=== PATIENT | female | born 1935 | race Caucasian/White ===

== ENCOUNTER 2016-04-07 18:53 | Inpatient (IN) | payer MEDICARE, BC ==
[~2016-04-07] VITALS: Ht 172.2 cm; Wt 94.5 kg
[2016-04-07] MEDS ORDERED: BISACODYL 10 MG SUPP PR PRN (20:00)
[2016-04-07] MEDS ORDERED: DEXTROSE 50% 50 ML SYRINGE IV PRN ×2 (20:00)
[2016-04-07] MEDS ORDERED: IPRATROPIUM (NEB) 0.5 MG/2.5 ML AMP INH PRN (20:00)
[2016-04-07] MEDS ORDERED: GLUCOSE GEL 15 GRAM TUBE PO PRN ×2 (20:00)
[2016-04-07] MEDS ORDERED: ALBUTEROL 0.5% (NEB) 2.5 MG/0.5 ML AMP INH PRN (20:00)
[2016-04-07] MEDS ORDERED: ACETAMINOPHEN 650 MG SUPP PR PRN (20:00)
[2016-04-07] MEDS ORDERED: morphine 2 MG INJ IV PRN (20:00)
[2016-04-07] MEDS ORDERED: GLUCAGON 1 MG INJ IM PRN (20:00)
[2016-04-07] MEDS ORDERED: GLUCOSE GEL 15 GRAM TUBE BUCCAL PRN (20:00)
[2016-04-07] MEDS ORDERED: hydrOXYzine HCL 25 MG TAB PO PRN (20:00)
[2016-04-07] MEDS ORDERED: ONDANSETRON 4 MG INJ IV PRN (20:00)
[2016-04-07] MEDS ORDERED: ZOLPIDEM 5 MG TAB PO PRN (20:00)
[2016-04-07] MEDS ORDERED: ACETAMINOPHEN 325 MG TAB PO PRN (20:00)
[2016-04-07] MEDS ORDERED: LOPERAMIDE 2 MG CAP PO PRN (20:00)
[2016-04-07] MEDS ORDERED: NITROGLYCERIN (SL) 0.4 MG TAB SL PRN (20:00)
[2016-04-07] MEDS: ALBUTEROL 0.5% (NEB) 2.5 MG/0.5 ML AMP INH SCH (20:33)
[2016-04-07] MEDS: IPRATROPIUM (NEB) 0.5 MG/2.5 ML AMP INH SCH (20:33)
[2016-04-07] MEDS: [UNRECOGNIZED DRUG - OTHER] SC SCH (21:00)
[2016-04-07] MEDS: TRIAMCINOLONE ACET 0.1% 15 GM CR TOP SCH (21:00)
[2016-04-07] MEDS: SALMETEROL/FLUTICASONE 250/50 INHA INH SCH (21:16)
[2016-04-07] MEDS: ATORVASTATIN 10 MG TAB PO SCH (21:16)
[2016-04-07] MEDS: traMADol 50 MG TAB PO PRN (21:22)
[2016-04-07] MEDS: INSULIN GLARGINE [LANtus] 3 ML PEN SC SCH (21:30)
[2016-04-07 22:54] LABS: ADD UMIC YES; URINE BILIRUBIN (Dip) NEGATIVE (NEGATIVE); URINE BLOOD (Dip) 2+ (NEGATIVE); URINE COLOR LT. YELLOW (YELLOW); URINE GLUCOSE (Dip) NEGATIVE (NEGATIVE); URINE KETONES (Dip) NEGATIVE (NEGATIVE); URINE LEUKOCYTE ESTERASE (Dip) 2+ (NEGATIVE); URINE NITRITE (Dip) NEGATIVE (NEGATIVE); URINE TOTAL PROTEIN (Dip) 2+ (NEGATIVE); URINE UROBILINOGEN (Dip) 0.2 E.U./dL (0.1-1.0)
[2016-04-07 23:33] LABS: SQUAMOUS EPITHELIAL CELL,UR MANY; URINE RBCS 25-50 /HPF (0)
[2016-04-07 23:34] LABS: BACTERIA,URINE MANY
[2016-04-08] MEDS: ALBUTEROL 0.5% (NEB) 2.5 MG/0.5 ML AMP INH SCH ×7 (01:00→20:16)
[2016-04-08] MEDS ORDERED: LACTULOSE 30ML CUP PO PRN (03:00)
[2016-04-08] MEDS ORDERED: ACETAMINOPHEN 325 MG TAB PO PRN (03:00)
[2016-04-08] MEDS ORDERED: MAGNESIUM HYDROXIDE 30ML CUP PO PRN (03:00)
[2016-04-08] MEDS ORDERED: BISACODYL 10 MG SUPP PR PRN (03:00)
[2016-04-08 07:27] LABS: ALBUMIN 3.2 g/dl (3.3-4.9)
[2016-04-08 07:30] VITALS: BP 135/60; RESP 18
[2016-04-08 07:30] LABS: BILIRUBIN,INDIRECT 0.1 mg/dl (0-1.1); BILIRUBIN,TOTAL 0.1 mg/dl (0.2-1.3); CREATININE 1.06 mg/dl (0.44-1.00); TOTAL PROTEIN 6.4 g/dl (6.1-8.1)
[2016-04-08 07:35] LABS: BASOPHILS % 0.5 % (0.0-2.0); EOSINOPHILS % 9.7 % (0.0-7.0); HEMATOCRIT 30.6 % (37.0-47.0); HEMOGLOBIN 9.8 g/dl (12.0-16.0); LYMPHOCYTES # 1.5 10^3/ul (0.8-2.9); LYMPHOCYTES % 15.5 % (15.0-51.0); MEAN CORPUSCULAR HEMOGLOBIN 23.6 pg (29.0-33.0); MEAN CORPUSCULAR HGB CONC 32.1 g/dl (32.0-37.0); MEAN CORPUSCULAR VOLUME 73.5 fl (82.0-101.0); MEAN PLATELET VOLUME 10.2 fl (7.4-10.4); MONOCYTE # 0.8 10^3/ul (0.3-0.9); MONOCYTES % 8.1 % (0.0-11.0); NEUTROPHIL # 6.6 10^3/ul (1.6-7.5); NEUTROPHILS % 66.2 % (39.0-77.0); PLATELET COUNT 264 10^3/UL (140-440); RED BLOOD COUNT 4.17 10^6/ul (4.20-5.40); RED CELL DISTRIBUTION WIDTH 20.9 % (11.5-14.5)
[2016-04-08 08:00] VITALS: BP 135/60; PULSE 84; RESP 18
[2016-04-08 08:02] LABS: CONDITION 1; LH ANALYZER COMMENTS 1
[2016-04-08] MEDS: INSULIN ASPART [NOVOLOG] 3 ML PEN SC SCH ×3 (08:05→17:52)
[2016-04-08] MEDS: [UNRECOGNIZED DRUG - OTHER] SC SCH ×4 (08:06→20:49)
[2016-04-08] MEDS: FERROUS SULFATE (EC) 325 MG TAB PO SCH (08:40)
[2016-04-08] MEDS: ESCITALOPRAM 10 MG TAB PO SCH (08:40)
[2016-04-08] MEDS: AMLODIPINE 5 MG TAB PO SCH (08:42)
[2016-04-08] MEDS: ATENOLOL 50 MG TAB PO SCH (08:43)
[2016-04-08] MEDS: SALMETEROL/FLUTICASONE 250/50 INHA INH SCH ×2 (08:44→20:42)
[2016-04-08] MEDS: IPRATROPIUM (NEB) 0.5 MG/2.5 ML AMP INH SCH ×4 (08:57→20:16)
[2016-04-08] MEDS: DOCUSATE SODIUM 100 MG CAP PO SCH ×2 (09:00→20:43)
[2016-04-08] MEDS: TRIAMCINOLONE ACET 0.1% 15 GM CR TOP SCH ×2 (09:00→20:49)
[2016-04-08] MEDS: FLUTICASONE 0.05% 16 GM NAS SPRAY NASAL SCH (09:00)
--- NOTE | 2016-04-08 17:28 | HP ---
Date/Time of Note Date/Time of Note DATE: 04/08/16 TIME: 17:27 Assessment/Plan VTE Prophylaxis VTE Prophylaxis Intervention: SCD's Lines/Catheters Urinary Cath still in place: No Assessment/Plan Assessment/Plan 1. Diabetes mellitus type 2. 2. Hypertension. 3. Diabetic neuropathy. 4. Acute on chronic kidney disease- Resolved 5. Anxiety. 6. Rehabilitation and Mobility 7. COPD Will cont all medical Rx and treatments from [facility] Pt is tolerating without any adverse affects BP well controlled SOB has significantly improved, cont respiratory care. Pt does not wish to have ADA diet, Prefers regular diet, will request Dietary consultation. Pt code status is confirmed with Nursing present, DNR. HPI/ROS Admit Date/Time Admit Date/Time Apr 07, 2016 at 18:53 Hx of Present Illness 80-year-old female with a history of multiple medical comorbidities, Hx of COPD , DM, HTN and CKD, who was initially admitted to [facility] with severe increased shortness of breath. The patient was noted to have respiratory failure secondary to COPD exacerbation. The patient was eventually transferred to [place]. The patient's pulmonary status continued to improve and patient was discharged from [place] and admitted to Rehab unit. ROS all other systems reviewed and are negative. PMH/Family/Social Past Medical History PAST MEDICAL HISTORY: 1. Chronic obstructive pulmonary disease on home O2. 2. Hypertension. 3. Type 2 diabetes mellitus. 4. Chronic kidney disease. 5. Anxiety. CURRENT MEDICATIONS: 1. Albuterol inhaler. 2. Norvasc 5 mg p.o. q.a.m. 3. Atenolol 50 mg p.o. daily. 4. Lipitor 10 mg p.o. daily. 5. Lexapro 10 mg p.o. daily. 6. Ferrous sulfate 325 p.o. q.a.m. 7. Atarax p.r.n. 8. Insulin sliding scale. 9. NovoLog 8 units subq before meals. 10. Lantus 25 units subq at bedtime. 11. Tramadol p.r.n. 12. Advair inhaler b.i.d. ALLERGIES: STEROIDS. Medical History: other (as per hPI) Past Surgical History Past Surgical Hx: other Family History Significant Family History: no pertinent family hx Social History Alcohol Use: none Smoking Status: Former smoker Drug Use: none Exam/Review of Systems Vital Signs Vitals Vital Signs Date Time Temp Pulse Resp B/P Pulse Ox O2 Delivery O2 Flow Rate FiO2 04/08/16 17:21 96 20 97 Nasal Cannula 3.0 04/08/16 08:00 98.2 135/60 Exam Constitutional: alert, oriented, No distress Psych: No anxiety Head: atraumatic, normocephalic Eyes: EOMI ENMT: mucosa pink and moist, nl lips & teeth Neck: No jvd Respiratory: crackles/rales, No diminished breath sounds, No labored breathing, No wheezing Cardiovascular: edema, regular rate and rhythm Gastrointestinal: non-tender, soft, No distended, No rebound or guarding Extremities: No edema Neurological: SHERIFF'S OFFICER II-XII intact, nl mental status, nl speech, No confused, No lethargic Skin: No diaphoresis, No rash or lesions Labs Result Diagram: 04/08/16 0600 04/08/16 0600 Medications Medications Current Medications Acetaminophen (Tylenol Tab) 650 mg Q6H PRN PO MILD PAIN 1-3 OR TEMP.>100.4F; Start 04/07/16 at 20:00 Acetaminophen (Tylenol Supp) 650 mg Q6H PRN RI MILD PAIN 1-3 OR TEMP.>100.4F; Start 04/07/16 at 20:00 Amlodipine Besylate (Norvasc) 5 mg QAM PO Last administered on 04/08/16 08:42 ; Admin Dose 5 MG; Start 04/08/16 at 09:00 Atenolol (Tenormin) 50 mg DAILY PO Last administered on 04/08/16 08:43; Admin Dose 50 MG; Start 04/08/16 at 09:00 Atorvastatin Calcium (Lipitor) 10 mg DAILY@21 PO Last administered on 21:16; Admin Dose 10 MG; Start 04/07/16 at 21:00 Bisacodyl (Dulcolax Supp) 10 mg DAILY PRN RI CONSTIPATION; Start 04/07/16 at 20 :00 Clonidine (Catapres) 0.1 mg Q6H PRN PO SBP ABOVE 160; DBP ABOVE 100; Start at 20:00 Diphenhydramine HCl (Benadryl) 25 mg Q6H PRN PO ITCHING; Start 04/07/16 at 20: 00 Escitalopram Oxalate (Lexapro) 10 mg DAILY PO Last administered on 04/08/16 08 :40; Admin Dose 10 MG; Start 04/08/16 at 09:00 Ferrous Sulfate (Ferrous Sulfate (Ec)) 325 mg QAM PO Last administered on 08:40; Admin Dose 325 MG; Start 04/08/16 at 09:00 Fluticasone Propionate (Flonase 0.05% Nasal) 2 spray DAILY NASAL ; Start at 09:00 Hydroxyzine HCl (Atarax) 25 mg Q6H PRN PO ITCHING; Start 04/07/16 at 20:00 Insulin Glargine (Lantus) 25 unit HS SC Last administered on 04/07/16 21:30; Admin Dose 25 UNIT; Start 04/07/16 at 21:00 Loperamide HCl (Imodium Cap) 2 mg Q4H PRN PO DIARRHEA; Start 04/07/16 at 20:00 Morphine Sulfate (morphine) 1 mg Q2H PRN IV PAIN SCALE 7-10; Start 04/07/16 at 20:00 Nitroglycerin (Nitroglycerin (Sl Tab) 0.4 Mg) 1 tab Q5M PRN SL CHEST PAIN; Start 04/07/16 at 20:00 Ondansetron HCl (Zofran Inj) 4 mg Q4H PRN IV NAUSEA AND/OR VOMITING; Start at 20:00 Salmeterol Xinafoate/ Fluticasone (Advair 250/50 Diskus) 1 inh BID INH Last administered on 04/08/16 08:44; Admin Dose 1 INH; Start 04/07/16 at 21:00 Tramadol HCl (Ultram) 50 mg Q6H PRN PO SEVERE PAIN Last administered on 21:22; Admin Dose 50 MG; Start 04/07/16 at 20:00 Triamcinolone Acetonide (Kenalog 0.1% Cr) 1 applic BID TOP ; Start 04/07/16 at 21:00 Zolpidem Tartrate (Ambien) 5 mg HS PRN PO INSOMNIA; Start 04/07/16 at 20:00 Miscellaneous Information 1 ea NOTE XX ; Start 04/07/16 at 20:00 Glucose (Glutose) 15 gm Q15M PRN PO DECREASED GLUCOSE; Start 04/07/16 at 20:00 Glucose (Glutose) 22.5 gm Q15M PRN PO DECREASED GLUCOSE; Start 04/07/16 at 20: 00 Dextrose (D50w Syringe) 25 ml Q15M PRN IV DECREASED GLUCOSE; Start 04/07/16 at 20:00 Dextrose (D50w Syringe) 50 ml Q15M PRN IV DECREASED GLUCOSE; Start 04/07/16 at 20:00 Glucagon (Glucagen) 1 mg Q15M PRN IM DECREASED GLUCOSE; Start 04/07/16 at 20:00 Glucose (Glutose) 15 gm Q15M PRN BUCCAL DECREASED GLUCOSE; Start 04/07/16 at 20 :00 Influenza Virus Vaccine (Fluzone) 0.5 ml ONCE ONCE IM* ; Start 04/09/16 at 09:00 ; Stop 04/09/16 at 09:01 Docusate Sodium (Colace) 100 mg BID PO ; Start 04/08/16 at 09:00 Senna (Senokot) 1 tab HS PO ; Start 04/08/16 at 21:00 Acetaminophen (Tylenol Tab) 650 mg Q4H PRN PO PAIN; Start 04/08/16 at 03:00 Magnesium Hydroxide (Milk Of Mag) 30 ml BID PRN PO CONSTIPATION; Start at 03:00 Lactulose (Enulose) 20 gm DAILY PRN PO CONSTIPATION; Start 04/08/16 at 03:00 Bisacodyl (Dulcolax Supp) 10 mg DAILY PRN RI CONSTIPATION; Start 04/08/16 at 03 :00 BRANDYN LACKEY MD Apr 08, 2016 17:28
--- NOTE | 2016-04-08 17:52 | CONS ---
DATE OF ADMISSION: 04/07/2016 DATE OF CONSULTATION: 04/08/2016 REHABILITATION IMPAIRMENT CATEGORY: Pulmonary debility secondary to chronic obstructive pulmonary d isease exacerbation. ACTIVE COMORBIDITIES: 1. Diabetes mellitus type 2. 2. Hypertension. 3. Diabetic neuropathy. 4. Acute on chronic kidney disease. 5. Anxiety. 6. Impairments in self-care and mobility. HISTORY OF PRESENT ILLNESS: The patient is a 80-year-old female with a history of multiple medical comorbidities who was initially admitted to [facility] with severe increased shortness of breath. The patient was noted to have respiratory failure secondary to COPD exacerbation. The trinity ent was eventually transferred to [place]. The patient's pulmonary status continued to improve and t he patient is now able to tolerate comprehensive interdisciplinary rehab care. FUNCTIONAL HISTORY: Prior to recent events, she was independent in self-care tasks and mobility. C urrently, she requires moderate assist for self-care and mobility tasks. SOCIAL HISTORY: The patient reportedly lives at home and hopes to return there upon discharge. PAST MEDICAL HISTORY: 1. Chronic obstructive pulmonary disease on home O2. 2. Hypertension. 3. Type 2 diabetes mellitus. 4. Chronic kidney disease. 5. Anxiety. CURRENT MEDICATIONS: 1. Albuterol inhaler. 2. Norvasc 5 mg p.o. q.a.m. 3. Atenolol 50 mg p.o. daily. 4. Lipitor 10 mg p.o. daily. 5. Lexapro 10 mg p.o. daily. 6. Ferrous sulfate 325 p.o. q.a.m. 7. Atarax p.r.n. 8. Insulin sliding scale. 9. NovoLog 8 units subq before meals. 10. Lantus 25 units subq at bedtime. 11. Tramadol p.r.n. 12. Advair inhaler b.i.d. ALLERGIES: STEROIDS. PHYSICAL EXAMINATION: VITAL SIGNS: The patient is currently afebrile with stable vital signs. HEENT: The extraocular motions appear intact. Oropharynx clear. NECK: Supple. LUNGS: Clear anteriorly. CARDIAC: S1, S2. ABDOMEN: Soft, nontender, positive bowel sounds. NEUROLOGIC: She is awake and alert and oriented x3. She can follow simple 1-step commands. She de monstrates antigravity strength in bilateral upper extremity and lower extremity. She does have imp aired dynamic balance. PLAN: The patient has been admitted for comprehensive interdisciplinary acute rehab and is anticipa sanchez to tolerate 3 hours of daily therapy in divided doses for at least 5/7 days a week. The treatme nt plan will include: 1. Physical therapy to focus on bed mobility, transfers, and household ambulation with the goal of having the patient reach a standby assist level while maintaining O2 saturation. 2. Occupational therapy to focus on hygiene, grooming, dressing, bathing, and toileting activities with the goal of having the patient reach a standby assist level. 3. Rehabilitation nursing for carryover of therapeutic interventions, the goal of continent of mila l and bladder, and the goal of the patient education with regard to the aforementioned issues. REHABILITATION BARRIER: O2 requirement. INTERVENTION FOR BARRIER: Close monitoring of oxygen saturations. ESTIMATED LENGTH OF STAY: 14 days. DISPOSITION GOAL: Home. I acknowledge that I have performed a full physical examination on this patient within 24 hours of a dmission to the rehabilitation unit and believe the patient is a good candidate for comprehensive in terdisciplinary rehab care and is anticipated to make reasonable goals in a reasonable period of kateryna e as outlined above. Dictated By: SISSY HOOD/NTS Conf#: [id number] DID#: [id number]
[2016-04-08 20:06] VITALS: BP 124/59; RESP 17
[2016-04-08] MEDS: SENNA TAB PO SCH (20:43)
[2016-04-08] MEDS: ATORVASTATIN 10 MG TAB PO SCH (20:43)
[2016-04-08] MEDS: INSULIN GLARGINE [LANtus] 3 ML PEN SC SCH (20:46)
[2016-04-09 08:00] VITALS: BP 145/85; PULSE 85; RESP 18
[2016-04-09] MEDS: INSULIN ASPART [NOVOLOG] 3 ML PEN SC SCH ×3 (08:05→17:32)
[2016-04-09] MEDS: [UNRECOGNIZED DRUG - OTHER] SC SCH ×4 (08:07→20:55)
[2016-04-09] MEDS: traMADol 50 MG TAB PO PRN ×2 (08:47→20:41)
[2016-04-09] MEDS: SALMETEROL/FLUTICASONE 250/50 INHA INH SCH ×2 (08:47→20:40)
[2016-04-09] MEDS: ESCITALOPRAM 10 MG TAB PO SCH (08:48)
[2016-04-09] MEDS: FERROUS SULFATE (EC) 325 MG TAB PO SCH (08:48)
[2016-04-09] MEDS: FLUTICASONE 0.05% 16 GM NAS SPRAY NASAL SCH (08:49)
[2016-04-09] MEDS: DOCUSATE SODIUM 100 MG CAP PO SCH ×2 (08:49→20:40)
[2016-04-09 08:53] VITALS: BP 145/85; RESP 18
[2016-04-09] MEDS: AMLODIPINE 5 MG TAB PO SCH (09:00)
[2016-04-09] MEDS: ATENOLOL 50 MG TAB PO SCH (09:00)
[2016-04-09] MEDS ORDERED: INFLUENZA VIRUS VACCINE 0.5 ML (DISPENSING) IM* ONE (09:00)
[2016-04-09] MEDS: TRIAMCINOLONE ACET 0.1% 15 GM CR TOP SCH ×2 (09:00→20:56)
[2016-04-09] MEDS: IPRATROPIUM (NEB) 0.5 MG/2.5 ML AMP INH SCH ×4 (09:47→21:40)
[2016-04-09] MEDS: ALBUTEROL 0.5% (NEB) 2.5 MG/0.5 ML AMP INH SCH ×4 (09:47→21:41)
--- NOTE | 2016-04-09 11:17 | CONS ---
Date/Time of Note Date/Time of Note DATE: 04/09/16 TIME: 11:16 Consult Date/Type/Reason Admit Date/Time Apr 07, 2016 at 18:53 Initial Consult Date Subjective Feeling much better than yesterday Objective pulm- cta mod assist amb 40 feet Vital Signs Date Time Temp Pulse Resp B/P Pulse Ox O2 Delivery O2 Flow Rate FiO2 04/09/16 09:48 85 20 Nasal Cannula 3.0 04/09/16 08:53 98.7 145/85 98 Intake and Output 04/08/16 04/08/16 04/09/16 15:00 23:00 07:00 Intake Total 240 ml Balance 240 ml Results/Medications Result Diagram: 04/08/16 0600 04/08/16 0600 Results 24 hrs Laboratory Tests Test 04/08/16 12:09 04/08/16 17:23 04/08/16 20:39 04/09/16 03:04 Bedside Glucose 218 92 165 147 Test 04/09/16 07:33 Bedside Glucose 200 Medications Current Medications Acetaminophen (Tylenol Tab) 650 mg Q6H PRN PO MILD PAIN 1-3 OR TEMP.>100.4F; Start 04/07/16 at 20:00 Acetaminophen (Tylenol Supp) 650 mg Q6H PRN MD MILD PAIN 1-3 OR TEMP.>100.4F; Start 04/07/16 at 20:00 Amlodipine Besylate (Norvasc) 5 mg QAM PO Last administered on 04/08/16 08:42 ; Admin Dose 5 MG; Start 04/08/16 at 09:00 Atenolol (Tenormin) 50 mg DAILY PO Last administered on 04/08/16 08:43; Admin Dose 50 MG; Start 04/08/16 at 09:00 Atorvastatin Calcium (Lipitor) 10 mg DAILY@21 PO Last administered on 20:43; Admin Dose 10 MG; Start 04/07/16 at 21:00 Bisacodyl (Dulcolax Supp) 10 mg DAILY PRN MD CONSTIPATION; Start 04/07/16 at 20 :00 Clonidine (Catapres) 0.1 mg Q6H PRN PO SBP ABOVE 160; DBP ABOVE 100; Start at 20:00 Diphenhydramine HCl (Benadryl) 25 mg Q6H PRN PO ITCHING; Start 04/07/16 at 20: 00 Escitalopram Oxalate (Lexapro) 10 mg DAILY PO Last administered on 04/09/16 08 :48; Admin Dose 10 MG; Start 04/08/16 at 09:00 Ferrous Sulfate (Ferrous Sulfate (Ec)) 325 mg QAM PO Last administered on 08:48; Admin Dose 325 MG; Start 04/08/16 at 09:00 Fluticasone Propionate (Flonase 0.05% Nasal) 2 spray DAILY NASAL ; Start at 09:00 Hydroxyzine HCl (Atarax) 25 mg Q6H PRN PO ITCHING; Start 04/07/16 at 20:00 Insulin Glargine (Lantus) 25 unit HS SC Last administered on 04/08/16 20:46; Admin Dose 25 UNIT; Start 04/07/16 at 21:00 Loperamide HCl (Imodium Cap) 2 mg Q4H PRN PO DIARRHEA; Start 04/07/16 at 20:00 Morphine Sulfate (morphine) 1 mg Q2H PRN IV PAIN SCALE 7-10; Start 04/07/16 at 20:00 Nitroglycerin (Nitroglycerin (Sl Tab) 0.4 Mg) 1 tab Q5M PRN SL CHEST PAIN; Start 04/07/16 at 20:00 Ondansetron HCl (Zofran Inj) 4 mg Q4H PRN IV NAUSEA AND/OR VOMITING; Start at 20:00 Salmeterol Xinafoate/ Fluticasone (Advair 250/50 Diskus) 1 inh BID INH Last administered on 04/09/16 08:47; Admin Dose 1 INH; Start 04/07/16 at 21:00 Tramadol HCl (Ultram) 50 mg Q6H PRN PO SEVERE PAIN Last administered on 08:47; Admin Dose 50 MG; Start 04/07/16 at 20:00 Triamcinolone Acetonide (Kenalog 0.1% Cr) 1 applic BID TOP Last administered on 04/08/16 20:49; Admin Dose 1 APPLIC; Start 04/07/16 at 21:00 Zolpidem Tartrate (Ambien) 5 mg HS PRN PO INSOMNIA; Start 1/15/17 at 20:00 Miscellaneous Information 1 ea NOTE XX ; Start 04/07/16 at 20:00 Glucose (Glutose) 15 gm Q15M PRN PO DECREASED GLUCOSE; Start 04/07/16 at 20:00 Glucose (Glutose) 22.5 gm Q15M PRN PO DECREASED GLUCOSE; Start 04/07/16 at 20: 00 Dextrose (D50w Syringe) 25 ml Q15M PRN IV DECREASED GLUCOSE; Start 04/07/16 at 20:00 Dextrose (D50w Syringe) 50 ml Q15M PRN IV DECREASED GLUCOSE; Start 04/07/16 at 20:00 Glucagon (Glucagen) 1 mg Q15M PRN IM DECREASED GLUCOSE; Start 04/07/16 at 20:00 Glucose (Glutose) 15 gm Q15M PRN BUCCAL DECREASED GLUCOSE; Start 04/07/16 at 20 :00 Docusate Sodium (Colace) 100 mg BID PO Last administered on 04/08/16 20:43; Admin Dose 100 MG; Start 04/08/16 at 09:00 Senna (Senokot) 1 tab HS PO Last administered on 04/08/16 20:43; Admin Dose 1 TAB; Start 04/08/16 at 21:00 Acetaminophen (Tylenol Tab) 650 mg Q4H PRN PO PAIN; Start 04/08/16 at 03:00 Magnesium Hydroxide (Milk Of Mag) 30 ml BID PRN PO CONSTIPATION; Start at 03:00 Lactulose (Enulose) 20 gm DAILY PRN PO CONSTIPATION; Start 04/08/16 at 03:00 Bisacodyl (Dulcolax Supp) 10 mg DAILY PRN MD CONSTIPATION; Start 04/08/16 at 03 :00 Assessment/Plan Additional Assessment/Plan Rehab- Pulmonary debility secondary to chronic obstructive pulmonary disease exacerbation. Tolerating rehab program Diabetes mellitus type 2- wants more liberalized diet Hypertension. Diabetic neuropathy. Acute on chronic kidney disease. Anxiety. SISSY CARBALLO MD Apr 09, 2016 11:17
--- NOTE | 2016-04-09 12:53 | PN ---
Date/Time of Note Date/Time of Note DATE: 04/09/16 TIME: 12:52 Assessment/Plan VTE Prophylaxis VTE Prophylaxis Intervention: SCD's Lines/Catheters Urinary Cath still in place: No Assessment/Plan Assessment/Plan 1. Diabetes mellitus type 2. 2. Hypertension. 3. Diabetic neuropathy. 4. Acute on chronic kidney disease- Resolved 5. Anxiety. 6. Rehabilitation and Mobility 7. COPD Will cont all medical Rx and treatments from [facility] Pt is tolerating without any adverse affects, BP well controlled SOB has significantly improved, cont respiratory care. Pt does not wish to have ADA diet, Prefers regular diet, will request Dietary consultation. Pt code status is confirmed with Nursing present, DNR. Subjective 24 Hr Interval Summary Free Text/Dictation No new complaints. Exam/Review of Systems Vital Signs Vitals Vital Signs Date Time Temp Pulse Resp B/P Pulse Ox O2 Delivery O2 Flow Rate FiO2 04/09/16 09:48 85 20 Nasal Cannula 3.0 04/09/16 08:53 98.7 145/85 98 Intake and Output 04/08/16 04/08/16 04/09/16 15:00 23:00 07:00 Intake Total 240 ml Balance 240 ml Exam Constitutional: alert, No distress ENMT: mucosa pink and moist Neck: No jvd Respiratory: normal air movement, No crackles/rales, No diminished breath sounds, No labored breathing Cardiovascular: regular rate and rhythm, No edema Gastrointestinal: soft Neurological: EVENTS MANAGER II-XII intact, nl mental status Skin: No diaphoresis Results Result Diagram: 04/08/16 0600 04/08/16 0600 Results 24 hrs Laboratory Tests Test 04/08/16 17:23 04/08/16 20:39 04/09/16 03:04 04/09/16 07:33 Bedside Glucose 92 165 147 200 Test 04/09/16 12:03 Bedside Glucose 241 H Medications Medications Current Medications Acetaminophen (Tylenol Tab) 650 mg Q6H PRN PO MILD PAIN 1-3 OR TEMP.>100.4F; Start 04/07/16 at 20:00 Acetaminophen (Tylenol Supp) 650 mg Q6H PRN NV MILD PAIN 1-3 OR TEMP.>100.4F; Start 04/07/16 at 20:00 Amlodipine Besylate (Norvasc) 5 mg QAM PO Last administered on 04/08/16t 08:42 ; Admin Dose 5 MG; Start 04/08/16 at 09:00 Atenolol (Tenormin) 50 mg DAILY PO Last administered on 04/08/16 08:43; Admin Dose 50 MG; Start 04/08/16 at 09:00 Atorvastatin Calcium (Lipitor) 10 mg DAILY@21 PO Last administered on 20:43; Admin Dose 10 MG; Start 04/07/16 at 21:00 Bisacodyl (Dulcolax Supp) 10 mg DAILY PRN [place] CONSTIPATION; Start 04/07/16 at 20 :00 Clonidine (Catapres) 0.1 mg Q6H PRN PO SBP ABOVE 160; DBP ABOVE 100; Start at 20:00 Diphenhydramine HCl (Benadryl) 25 mg Q6H PRN PO ITCHING; Start 04/07/16 at 20: 00 Escitalopram Oxalate (Lexapro) 10 mg DAILY PO Last administered on 04/09/16 08 :48; Admin Dose 10 MG; Start 04/08/16 at 09:00 Ferrous Sulfate (Ferrous Sulfate (Ec)) 325 mg QAM PO Last administered on 08:48; Admin Dose 325 MG; Start 04/08/16 at 09:00 Fluticasone Propionate (Flonase 0.05% Nasal) 2 spray DAILY NASAL ; Start at 09:00 Hydroxyzine HCl (Atarax) 25 mg Q6H PRN PO ITCHING; Start 04/07/16 at 20:00 Insulin Glargine (Lantus) 25 unit HS SC Last administered on 04/08/16 20:46; Admin Dose 25 UNIT; Start 04/07/16 at 21:00 Loperamide HCl (Imodium Cap) 2 mg Q4H PRN PO DIARRHEA; Start 04/07/16 at 20:00 Morphine Sulfate (morphine) 1 mg Q2H PRN IV PAIN SCALE 7-10; Start 04/07/16 at 20:00 Nitroglycerin (Nitroglycerin (Sl Tab) 0.4 Mg) 1 tab Q5M PRN SL CHEST PAIN; Start 04/07/16 at 20:00 Ondansetron HCl (Zofran Inj) 4 mg Q4H PRN IV NAUSEA AND/OR VOMITING; Start at 20:00 Salmeterol Xinafoate/ Fluticasone (Advair 250/50 Diskus) 1 inh BID INH Last administered on 04/09/16 08:47; Admin Dose 1 INH; Start 04/07/16 at 21:00 Tramadol HCl (Ultram) 50 mg Q6H PRN PO SEVERE PAIN Last administered on 08:47; Admin Dose 50 MG; Start 04/07/16 at 20:00 Triamcinolone Acetonide (Kenalog 0.1% Cr) 1 applic BID TOP Last administered on 04/08/16 20:49; Admin Dose 1 APPLIC; Start 04/07/16 at 21:00 Zolpidem Tartrate (Ambien) 5 mg HS PRN PO INSOMNIA; Start 04/07/16 at 20:00 Miscellaneous Information 1 ea NOTE XX ; Start 04/07/16 at 20:00 Glucose (Glutose) 15 gm Q15M PRN PO DECREASED GLUCOSE; Start 04/07/16 at 20:00 Glucose (Glutose) 22.5 gm Q15M PRN PO DECREASED GLUCOSE; Start 04/07/16 at 20: 00 Dextrose (D50w Syringe) 25 ml Q15M PRN IV DECREASED GLUCOSE; Start 04/07/16 at 20:00 Dextrose (D50w Syringe) 50 ml Q15M PRN IV DECREASED GLUCOSE; Start 04/07/16 at 20:00 Glucagon (Glucagen) 1 mg Q15M PRN IM DECREASED GLUCOSE; Start 04/07/16 at 20:00 Glucose (Glutose) 15 gm Q15M PRN BUCCAL DECREASED GLUCOSE; Start 04/07/16 at 20 :00 Docusate Sodium (Colace) 100 mg BID PO Last administered on 04/08/16 20:43; Admin Dose 100 MG; Start 04/08/16 at 09:00 Senna (Senokot) 1 tab HS PO Last administered on 04/08/16 20:43; Admin Dose 1 TAB; Start 04/08/16 at 21:00 Acetaminophen (Tylenol Tab) 650 mg Q4H PRN PO PAIN; Start 04/08/16 at 03:00 Magnesium Hydroxide (Milk Of Mag) 30 ml BID PRN PO CONSTIPATION; Start at 03:00 Lactulose (Enulose) 20 gm DAILY PRN PO CONSTIPATION; Start 04/08/16 at 03:00 Bisacodyl (Dulcolax Supp) 10 mg DAILY PRN [place] CONSTIPATION; Start 04/08/16 at 03 :00 BRANDYN LACKEY MD Apr 09, 2016 12:53
[2016-04-09 20:14] VITALS: BP 146/66; RESP 17
[2016-04-09] MEDS: SENNA TAB PO SCH (20:41)
[2016-04-09] MEDS: ATORVASTATIN 10 MG TAB PO SCH (20:41)
[2016-04-09] MEDS: INSULIN GLARGINE [LANtus] 3 ML PEN SC SCH (20:53)
[2016-04-10] MEDS: INSULIN ASPART [NOVOLOG] 3 ML PEN SC SCH ×3 (08:01→17:31)
[2016-04-10] MEDS: [UNRECOGNIZED DRUG - OTHER] SC SCH ×4 (08:02→21:00)
[2016-04-10 08:22] VITALS: BP 133/78; RESP 18
[2016-04-10] MEDS: AMLODIPINE 5 MG TAB PO SCH (08:43)
[2016-04-10] MEDS: SALMETEROL/FLUTICASONE 250/50 INHA INH SCH ×2 (08:43→21:13)
[2016-04-10] MEDS: ESCITALOPRAM 10 MG TAB PO SCH (08:43)
[2016-04-10] MEDS: ATENOLOL 50 MG TAB PO SCH (08:44)
[2016-04-10] MEDS: DOCUSATE SODIUM 100 MG CAP PO SCH ×2 (08:47→21:00)
[2016-04-10] MEDS: FERROUS SULFATE (EC) 325 MG TAB PO SCH (08:47)
[2016-04-10] MEDS: FLUTICASONE 0.05% 16 GM NAS SPRAY NASAL SCH (08:47)
[2016-04-10] MEDS: TRIAMCINOLONE ACET 0.1% 15 GM CR TOP SCH ×2 (08:48→21:00)
[2016-04-10] MEDS: IPRATROPIUM (NEB) 0.5 MG/2.5 ML AMP INH SCH ×4 (09:35→20:45)
[2016-04-10] MEDS: ALBUTEROL 0.5% (NEB) 2.5 MG/0.5 ML AMP INH SCH ×4 (09:35→20:45)
--- NOTE | 2016-04-10 10:51 | CONS ---
Date/Time of Note Date/Time of Note DATE: 04/10/16 TIME: 10:51 Consult Date/Type/Reason Admit Date/Time Apr 07, 2016 at 18:53 Subjective Feeling much more comfortable Objective pulm- cta anteriorly min assist ambulation 100 feet Vital Signs Date Time Temp Pulse Resp B/P Pulse Ox O2 Delivery O2 Flow Rate FiO2 04/10/16 09:36 85 17 96 Nasal Cannula 3.0 04/10/16 08:22 98.6 133/78 Intake and Output 04/09/16 04/09/16 04/10/16 14:59 22:59 06:59 Intake Total 480 ml 240 ml 890 ml Output Total 380 ml 100 ml Balance 100 ml 140 ml 890 ml Results/Medications Result Diagram: 04/08/16 0600 04/08/16 0600 Results 24 hrs Laboratory Tests Test 04/09/16 12:03 04/09/16 17:14 04/09/16 20:31 04/10/16 02:22 Bedside Glucose 241 H 248 H 175 147 Test 04/10/16 07:51 Bedside Glucose 173 Medications Current Medications Acetaminophen (Tylenol Tab) 650 mg Q6H PRN PO MILD PAIN 1-3 OR TEMP.>100.4F; Start 04/07/16 at 20:00 Acetaminophen (Tylenol Supp) 650 mg Q6H PRN [place] MILD PAIN 1-3 OR TEMP.>100.4F; Start 04/07/16 at 20:00 Amlodipine Besylate (Norvasc) 5 mg QAM PO Last administered on 04/10/16 08:43 ; Admin Dose 5 MG; Start 04/08/16 at 09:00 Atenolol (Tenormin) 50 mg DAILY PO Last administered on 04/10/16 08:44; Admin Dose 50 MG; Start 04/08/16 at 09:00 Atorvastatin Calcium (Lipitor) 10 mg DAILY@21 PO Last administered on 20:41; Admin Dose 10 MG; Start 04/07/16 at 21:00 Bisacodyl (Dulcolax Supp) 10 mg DAILY PRN [place] CONSTIPATION; Start 04/07/16 at 20 :00 Clonidine (Catapres) 0.1 mg Q6H PRN PO SBP ABOVE 160; DBP ABOVE 100; Start at 20:00 Diphenhydramine HCl (Benadryl) 25 mg Q6H PRN PO ITCHING; Start 04/07/16 at 20: 00 Escitalopram Oxalate (Lexapro) 10 mg DAILY PO Last administered on 04/10/16 08 :43; Admin Dose 10 MG; Start 04/08/16 at 09:00 Ferrous Sulfate (Ferrous Sulfate (Ec)) 325 mg QAM PO Last administered on 08:48; Admin Dose 325 MG; Start 04/08/16 at 09:00 Fluticasone Propionate (Flonase 0.05% Nasal) 2 spray DAILY NASAL ; Start at 09:00 Hydroxyzine HCl (Atarax) 25 mg Q6H PRN PO ITCHING; Start 04/07/16 at 20:00 Insulin Glargine (Lantus) 25 unit HS SC Last administered on 04/09/16 20:53; Admin Dose 25 UNIT; Start 04/07/16 at 21:00 Loperamide HCl (Imodium Cap) 2 mg Q4H PRN PO DIARRHEA; Start 04/07/16 at 20:00 Morphine Sulfate (morphine) 1 mg Q2H PRN IV PAIN SCALE 7-10; Start 04/07/16 at 20:00 Nitroglycerin (Nitroglycerin (Sl Tab) 0.4 Mg) 1 tab Q5M PRN SL CHEST PAIN; Start 04/07/16 at 20:00 Ondansetron HCl (Zofran Inj) 4 mg Q4H PRN IV NAUSEA AND/OR VOMITING; Start at 20:00 Salmeterol Xinafoate/ Fluticasone (Advair 250/50 Diskus) 1 inh BID INH Last administered on 04/10/16 08:43; Admin Dose 1 INH; Start 04/07/16 at 21:00 Tramadol HCl (Ultram) 50 mg Q6H PRN PO SEVERE PAIN Last administered on 20:41; Admin Dose 50 MG; Start 04/07/16 at 20:00 Triamcinolone Acetonide (Kenalog 0.1% Cr) 1 applic BID TOP Last administered on 04/08/16 20:49; Admin Dose 1 APPLIC; Start 04/07/16 at 21:00 Zolpidem Tartrate (Ambien) 5 mg HS PRN PO INSOMNIA; Start 04/07/16 at 20:00 Miscellaneous Information 1 ea NOTE XX ; Start 04/07/16 at 20:00 Glucose (Glutose) 15 gm Q15M PRN PO DECREASED GLUCOSE; Start 04/07/16 at 20:00 Glucose (Glutose) 22.5 gm Q15M PRN PO DECREASED GLUCOSE; Start 04/07/16 at 20: 00 Dextrose (D50w Syringe) 25 ml Q15M PRN IV DECREASED GLUCOSE; Start 04/07/16 at 20:00 Dextrose (D50w Syringe) 50 ml Q15M PRN IV DECREASED GLUCOSE; Start 04/07/16 at 20:00 Glucagon (Glucagen) 1 mg Q15M PRN IM DECREASED GLUCOSE; Start 04/07/16 at 20:00 Glucose (Glutose) 15 gm Q15M PRN BUCCAL DECREASED GLUCOSE; Start 04/07/16 at 20 :00 Docusate Sodium (Colace) 100 mg BID PO Last administered on 04/08/16 20:43; Admin Dose 100 MG; Start 04/08/16 at 09:00 Senna (Senokot) 1 tab HS PO Last administered on 04/08/16 20:43; Admin Dose 1 TAB; Start 04/08/16 at 21:00 Acetaminophen (Tylenol Tab) 650 mg Q4H PRN PO PAIN; Start 04/08/16 at 03:00 Magnesium Hydroxide (Milk Of Mag) 30 ml BID PRN PO CONSTIPATION; Start at 03:00 Lactulose (Enulose) 20 gm DAILY PRN PO CONSTIPATION; Start 04/08/16 at 03:00 Bisacodyl (Dulcolax Supp) 10 mg DAILY PRN [place] CONSTIPATION; Start 04/08/16 at 03 :00 Assessment/Plan Additional Assessment/Plan Rehab- Pulmonary debility Patient making excellent gains, continue treatment plan DM diabetic neuropathy CKD SISSY CARBALLO MD Apr 10, 2016 10:51
[2016-04-10] MEDS: traMADol 50 MG TAB PO PRN ×2 (14:20→21:15)
--- NOTE | 2016-04-10 14:45 | PN ---
Date/Time of Note Date/Time of Note DATE: 04/10/16 TIME: 14:42 Assessment/Plan VTE Prophylaxis VTE Prophylaxis Intervention: SCD's Lines/Catheters Urinary Cath still in place: No Assessment/Plan Assessment/Plan 1. Diabetes mellitus type 2. 2. Hypertension. 3. Diabetic neuropathy. 4. Acute on chronic kidney disease- Resolved 5. Anxiety. 6. Rehabilitation and Mobility 7. COPD 8. Urine Culture Positive, VRE ID Consulted for above Cont current Rx and plan. BP well controlled, Accuchecks, BG controlled. SOB has significantly improved, cont respiratory care. O2 sat 98% Dietary consultation and recommendations, Pt code status is confirmed with Nursing present, DNR. Subjective 24 Hr Interval Summary Free Text/Dictation Working with PT, No new complaints. Urine culture positive for VRE, ID consulted. Constitutional: requiring O2 Exam/Review of Systems Vital Signs Vitals Vital Signs Date Time Temp Pulse Resp B/P Pulse Ox O2 Delivery O2 Flow Rate FiO2 04/10/16 09:36 85 17 96 Nasal Cannula 3.0 04/10/16 08:22 98.6 133/78 Intake and Output 04/09/16 04/09/16 04/10/16 14:59 22:59 06:59 Intake Total 480 ml 240 ml 890 ml Output Total 380 ml 100 ml Balance 100 ml 140 ml 890 ml Exam Constitutional: No distress Head: atraumatic Eyes: EOMI Neck: No jvd Respiratory: crackles/rales, No diminished breath sounds, No labored breathing Cardiovascular: regular rate and rhythm, No edema Gastrointestinal: non-tender, soft Extremities: No edema Neurological: No lethargic Skin: No diaphoresis Results Microbiology URINE CULTURE Preliminary Organism 1 VANCO RESISTANT ENTEROCOCCUS COLONY COUNT >100,000 CFU/ml . MULTI DRUG RESISTANT ORGANISM Phoned to HÉCTOR,[id number],JERAMY,1031,04/10/16.TT VRE [facility] RX --------- --- AMPICILLIN >=32 R CIPROFLOXACIN >=8 R GENTAMICIN 120 S LINEZOLID 2 S NITROFURANTOIN 128 R PENICILLIN-G >=64 R QUINUPRISTIN/DALFOPRISTIN 0.5 S STREPTOMYCIN 300 R VANCOMYCIN >=32 R Result Diagram: 04/08/16 0600 04/08/16 0600 Results 24 hrs Laboratory Tests Test 04/09/16 17:14 04/09/16 20:31 04/10/16 02:22 04/10/16 07:51 Bedside Glucose 248 H 175 147 173 Test 04/10/16 12:11 Bedside Glucose 149 Medications Medications Current Medications Acetaminophen (Tylenol Tab) 650 mg Q6H PRN PO MILD PAIN 1-3 OR TEMP.>100.4F; Start 04/07/16 at 20:00 Acetaminophen (Tylenol Supp) 650 mg Q6H PRN [place] MILD PAIN 1-3 OR TEMP.>100.4F; Start 04/07/16 at 20:00 Amlodipine Besylate (Norvasc) 5 mg QAM PO Last administered on 04/10/16 08:43 ; Admin Dose 5 MG; Start 04/08/16 at 09:00 Atenolol (Tenormin) 50 mg DAILY PO Last administered on 04/10/16 08:44; Admin Dose 50 MG; Start 04/08/16 at 09:00 Atorvastatin Calcium (Lipitor) 10 mg DAILY@21 PO Last administered on 20:41; Admin Dose 10 MG; Start 04/07/16 at 21:00 Bisacodyl (Dulcolax Supp) 10 mg DAILY PRN [place] CONSTIPATION; Start 04/07/16 at 20 :00 Clonidine (Catapres) 0.1 mg Q6H PRN PO SBP ABOVE 160; DBP ABOVE 100; Start at 20:00 Diphenhydramine HCl (Benadryl) 25 mg Q6H PRN PO ITCHING; Start 04/07/16 at 20: 00 Escitalopram Oxalate (Lexapro) 10 mg DAILY PO Last administered on 04/10/16 08 :43; Admin Dose 10 MG; Start 04/08/16 at 09:00 Ferrous Sulfate (Ferrous Sulfate (Ec)) 325 mg QAM PO Last administered on 08:48; Admin Dose 325 MG; Start 04/08/16 at 09:00 Fluticasone Propionate (Flonase 0.05% Nasal) 2 spray DAILY NASAL ; Start at 09:00 Hydroxyzine HCl (Atarax) 25 mg Q6H PRN PO ITCHING; Start 04/07/16 at 20:00 Insulin Glargine (Lantus) 25 unit HS SC Last administered on 04/09/16 20:53; Admin Dose 25 UNIT; Start 04/07/16 at 21:00 Loperamide HCl (Imodium Cap) 2 mg Q4H PRN PO DIARRHEA; Start 04/07/16 at 20:00 Morphine Sulfate (morphine) 1 mg Q2H PRN IV PAIN SCALE 7-10; Start 04/07/16 at 20:00 Nitroglycerin (Nitroglycerin (Sl Tab) 0.4 Mg) 1 tab Q5M PRN SL CHEST PAIN; Start 04/07/16 at 20:00 Ondansetron HCl (Zofran Inj) 4 mg Q4H PRN IV NAUSEA AND/OR VOMITING; Start at 20:00 Salmeterol Xinafoate/ Fluticasone (Advair 250/50 Diskus) 1 inh BID INH Last administered on 04/10/16 08:43; Admin Dose 1 INH; Start 04/07/16 at 21:00 Tramadol HCl (Ultram) 50 mg Q6H PRN PO SEVERE PAIN Last administered on 14:20; Admin Dose 50 MG; Start 04/07/16 at 20:00 Triamcinolone Acetonide (Kenalog 0.1% Cr) 1 applic BID TOP Last administered on 04/08/16 20:49; Admin Dose 1 APPLIC; Start 04/07/16 at 21:00 Zolpidem Tartrate (Ambien) 5 mg HS PRN PO INSOMNIA; Start 04/07/16 at 20:00 Miscellaneous Information 1 ea NOTE XX ; Start 04/07/16 at 20:00 Glucose (Glutose) 15 gm Q15M PRN PO DECREASED GLUCOSE; Start 04/07/16 at 20:00 Glucose (Glutose) 22.5 gm Q15M PRN PO DECREASED GLUCOSE; Start 04/07/16 at 20: 00 Dextrose (D50w Syringe) 25 ml Q15M PRN IV DECREASED GLUCOSE; Start 04/07/16 at 20:00 Dextrose (D50w Syringe) 50 ml Q15M PRN IV DECREASED GLUCOSE; Start 04/07/16 at 20:00 Glucagon (Glucagen) 1 mg Q15M PRN IM DECREASED GLUCOSE; Start 04/07/16 at 20:00 Glucose (Glutose) 15 gm Q15M PRN BUCCAL DECREASED GLUCOSE; Start 04/07/16 at 20 :00 Docusate Sodium (Colace) 100 mg BID PO Last administered on 04/08/16 20:43; Admin Dose 100 MG; Start 04/08/16 at 09:00 Senna (Senokot) 1 tab HS PO Last administered on 04/08/16 20:43; Admin Dose 1 TAB; Start 04/08/16 at 21:00 Acetaminophen (Tylenol Tab) 650 mg Q4H PRN PO PAIN; Start 04/08/16 at 03:00 Magnesium Hydroxide (Milk Of Mag) 30 ml BID PRN PO CONSTIPATION; Start at 03:00 Lactulose (Enulose) 20 gm DAILY PRN PO CONSTIPATION; Start 04/08/16 at 03:00 Bisacodyl (Dulcolax Supp) 10 mg DAILY PRN [place] CONSTIPATION; Start 04/08/16 at 03 :00 BRANDYN LACKEY MD Apr 10, 2016 14:45
[2016-04-10] MEDS ORDERED: FOSFOMYCIN 3 GM PACKET PO ONE (16:00)
--- NOTE | 2016-04-10 18:14 | CONS ---
DATE OF ADMISSION: 04/07/2016 DATE OF CONSULTATION: 04/10/2016 TYPE OF CONSULTATION: Infectious disease. REASON FOR CONSULTATION: Antibiotic management. HISTORY OF PRESENT ILLNESS: Lillian Mansfield is a 80-year-old female with multiple medical comorbidi ties. Her problems include: 1. COPD. 2. Hypertension. 3. Adult-onset diabetes mellitus. 4. Chronic renal disease. The patient was initially admitted to [facility] with increased shortness of breath, respi ratory failure secondary to chronic obstructive pulmonary disease. The patient's pulmonary status c ontinued to improve and she was admitted to rehab unit. In addition to her diabetes, she has diabet ic neuropathy and anxiety. HOSPITAL COURSE: On admission on the , her white count was 10, H and H of 9.8 and 30.6, platele t count 264,000. BUN and creatinine 14/1.06. Her urine culture now comes back with VRE and infecti ous disease consult was obtained. PAST MEDICAL HISTORY: Operations as outlined. FAMILY HISTORY: Noncontributory. SOCIAL HISTORY: She does not smoke, drink, or abuse drugs. ALLERGIES: NONE TO PENICILLIN, SULFA, OR FOODS. MEDICATIONS: Per chart. REVIEW OF SYSTEMS: As per HPI. PHYSICAL EXAMINATION: GENERAL: The patient is a well-developed, well-nourished female who is alert, responsive, in no acu te distress. VITAL SIGNS: Stable. She is afebrile. SKIN: Without generalized rash. HEENT: Within normal limits. NECK: Supple. LYMPH NODES: None palpable. CHEST: Decreased breath sounds at the bases with occasional rales. HEART: Without murmur or gallop. ABDOMEN: Soft, nontender without organosplenomegaly or masses. EXTREMITIES: Without cyanosis, clubbing, or edema. RECTAL AND GENITAL: Deferred. NEUROLOGIC: No focal neurological abnormalities. IMPRESSION AND PLAN: The patient now is growing VRE in urine. Will treat her with either fosfomyci n or linezolid. We may want to give her fosfomycin, give her 1 dose, and see if that makes a differ ence since her urine does show greater than 50 white cells per high-power field. I will dictate my findings to Dr. Das. Dictated By: PAO LACY MD, JD/POORNIMA Conf#: [id number] DID#: [id number] CC: JASON CHRISTOPHER MD;*[facility]*
[2016-04-10] MEDS: SENNA TAB PO SCH (21:00)
[2016-04-10] MEDS: ATORVASTATIN 10 MG TAB PO SCH (21:14)
[2016-04-10] MEDS: INSULIN GLARGINE [LANtus] 3 ML PEN SC SCH (21:20)
[2016-04-10 22:14] VITALS: BP 119/54; RESP 18
[2016-04-11] MEDS: INSULIN ASPART [NOVOLOG] 3 ML PEN SC SCH ×3 (07:56→17:05)
[2016-04-11] MEDS: [UNRECOGNIZED DRUG - OTHER] SC SCH ×4 (07:57→20:39)
[2016-04-11 08:00] VITALS: BP 119/54; PULSE 93; RESP 18
[2016-04-11] MEDS: SALMETEROL/FLUTICASONE 250/50 INHA INH SCH ×2 (08:00→20:30)
[2016-04-11] MEDS: FLUTICASONE 0.05% 16 GM NAS SPRAY NASAL SCH (09:00)
[2016-04-11] MEDS: TRIAMCINOLONE ACET 0.1% 15 GM CR TOP SCH ×2 (09:00→21:00)
[2016-04-11 09:05] VITALS: BP 154/69; RESP 20
[2016-04-11] MEDS: ALBUTEROL 0.5% (NEB) 2.5 MG/0.5 ML AMP INH SCH ×4 (09:11→21:06)
[2016-04-11] MEDS: IPRATROPIUM (NEB) 0.5 MG/2.5 ML AMP INH SCH ×4 (09:11→21:06)
[2016-04-11] MEDS: DOCUSATE SODIUM 100 MG CAP PO SCH ×2 (09:23→21:00)
[2016-04-11] MEDS: ESCITALOPRAM 10 MG TAB PO SCH (09:24)
[2016-04-11] MEDS: ATENOLOL 50 MG TAB PO SCH (09:24)
[2016-04-11] MEDS: FERROUS SULFATE (EC) 325 MG TAB PO SCH (09:24)
[2016-04-11] MEDS: AMLODIPINE 5 MG TAB PO SCH (09:25)
[2016-04-11] MEDS: traMADol 50 MG TAB PO PRN ×2 (09:37→20:37)
--- NOTE | 2016-04-11 12:18 | CONS ---
Date/Time of Note Date/Time of Note DATE: 04/11/16 TIME: 12:18 Consult Date/Type/Reason Admit Date/Time Apr 07, 2016 at 18:53 Subjective doing well Objective min assist ambulation Vital Signs Date Time Temp Pulse Resp B/P Pulse Ox O2 Delivery O2 Flow Rate FiO2 04/11/16 09:11 97 3.0 04/11/16 09:11 76 18 Nasal Cannula 04/11/16 09:05 97.9 154/69 Intake and Output 04/10/16 04/10/16 04/11/16 14:59 22:59 06:59 Intake Total 720 ml 660 ml Output Total 150 ml 270 ml Balance 570 ml 390 ml Results/Medications Result Diagram: 04/08/16 0600 04/08/16 0600 Results 24 hrs Laboratory Tests Test 04/10/16 17:08 04/10/16 20:15 04/11/16 07:31 04/11/16 12:01 Bedside Glucose 108 147 176 178 Medications Current Medications Acetaminophen (Tylenol Tab) 650 mg Q6H PRN PO MILD PAIN 1-3 OR TEMP.>100.4F; Start 04/07/16 at 20:00 Acetaminophen (Tylenol Supp) 650 mg Q6H PRN [place] MILD PAIN 1-3 OR TEMP.>100.4F; Start 04/07/16 at 20:00 Amlodipine Besylate (Norvasc) 5 mg QAM PO Last administered on 04/11/16 09:25 ; Admin Dose 5 MG; Start 04/08/16 at 09:00 Atenolol (Tenormin) 50 mg DAILY PO Last administered on 04/11/16 09:24; Admin Dose 50 MG; Start 04/08/16 at 09:00 Atorvastatin Calcium (Lipitor) 10 mg DAILY@21 PO Last administered on 21:14; Admin Dose 10 MG; Start 04/07/16 at 21:00 Bisacodyl (Dulcolax Supp) 10 mg DAILY PRN [place] CONSTIPATION; Start 04/07/16 at 20 :00 Clonidine (Catapres) 0.1 mg Q6H PRN PO SBP ABOVE 160; DBP ABOVE 100; Start at 20:00 Diphenhydramine HCl (Benadryl) 25 mg Q6H PRN PO ITCHING; Start 04/07/16 at 20: 00 Escitalopram Oxalate (Lexapro) 10 mg DAILY PO Last administered on 04/11/16 09 :24; Admin Dose 10 MG; Start 04/08/16 at 09:00 Ferrous Sulfate (Ferrous Sulfate (Ec)) 325 mg QAM PO Last administered on 09:24; Admin Dose 325 MG; Start 04/08/16 at 09:00 Fluticasone Propionate (Flonase 0.05% Nasal) 2 spray DAILY NASAL ; Start at 09:00 Hydroxyzine HCl (Atarax) 25 mg Q6H PRN PO ITCHING; Start 04/07/16 at 20:00 Insulin Glargine (Lantus) 25 unit HS SC Last administered on 04/10/16 21:20; Admin Dose 25 UNIT; Start 04/07/16 at 21:00 Loperamide HCl (Imodium Cap) 2 mg Q4H PRN PO DIARRHEA; Start 04/07/16 at 20:00 Morphine Sulfate (morphine) 1 mg Q2H PRN IV PAIN SCALE 7-10; Start 04/07/16 at 20:00 Nitroglycerin (Nitroglycerin (Sl Tab) 0.4 Mg) 1 tab Q5M PRN SL CHEST PAIN; Start 04/07/16 at 20:00 Ondansetron HCl (Zofran Inj) 4 mg Q4H PRN IV NAUSEA AND/OR VOMITING; Start at 20:00 Salmeterol Xinafoate/ Fluticasone (Advair 250/50 Diskus) 1 inh BID INH Last administered on 04/11/16 08:00; Admin Dose 1 INH; Start 04/07/16 at 21:00 Tramadol HCl (Ultram) 50 mg Q6H PRN PO SEVERE PAIN Last administered on 09:37; Admin Dose 50 MG; Start 04/07/16 at 20:00 Triamcinolone Acetonide (Kenalog 0.1% Cr) 1 applic BID TOP Last administered on 04/08/16 20:49; Admin Dose 1 APPLIC; Start 04/07/16 at 21:00 Zolpidem Tartrate (Ambien) 5 mg HS PRN PO INSOMNIA; Start 04/07/16 at 20:00 Miscellaneous Information 1 ea NOTE XX ; Start 04/07/16 at 20:00 Glucose (Glutose) 15 gm Q15M PRN PO DECREASED GLUCOSE; Start 04/07/16 at 20:00 Glucose (Glutose) 22.5 gm Q15M PRN PO DECREASED GLUCOSE; Start 04/07/16 at 20: 00 Dextrose (D50w Syringe) 25 ml Q15M PRN IV DECREASED GLUCOSE; Start 04/07/16 at 20:00 Dextrose (D50w Syringe) 50 ml Q15M PRN IV DECREASED GLUCOSE; Start 04/07/16 at 20:00 Glucagon (Glucagen) 1 mg Q15M PRN IM DECREASED GLUCOSE; Start 04/07/16 at 20:00 Glucose (Glutose) 15 gm Q15M PRN BUCCAL DECREASED GLUCOSE; Start 04/07/16 at 20 :00 Docusate Sodium (Colace) 100 mg BID PO Last administered on 04/11/16 09:23; Admin Dose 100 MG; Start 04/08/16 at 09:00 Senna (Senokot) 1 tab HS PO Last administered on 04/08/16 20:43; Admin Dose 1 TAB; Start 04/08/16 at 21:00 Acetaminophen (Tylenol Tab) 650 mg Q4H PRN PO PAIN; Start 04/08/16 at 03:00 Magnesium Hydroxide (Milk Of Mag) 30 ml BID PRN PO CONSTIPATION; Start at 03:00 Lactulose (Enulose) 20 gm DAILY PRN PO CONSTIPATION; Start 04/08/16 at 03:00 Bisacodyl (Dulcolax Supp) 10 mg DAILY PRN [place] CONSTIPATION; Start 04/08/16 at 03 :00 Assessment/Plan Additional Assessment/Plan Rehab- Pulmonary debility Continue treatment program DM diabetic neuropathy CKD SISSY CARBALLO MD Apr 11, 2016 12:18
[2016-04-11 19:34] VITALS: BP 115/60; RESP 19
[2016-04-11] MEDS: ATORVASTATIN 10 MG TAB PO SCH (20:31)
--- NOTE | 2016-04-11 20:39 | PN ---
Date/Time of Note Date/Time of Note DATE: 04/11/16 TIME: 20:29 Assessment/Plan VTE Prophylaxis VTE Prophylaxis Intervention: SCD's Lines/Catheters Urinary Cath still in place: No Assessment/Plan Assessment/Plan 1. Diabetes mellitus type 2. 2. Hypertension. 3. Diabetic neuropathy. 4. Acute on chronic kidney disease- Resolved 5. Anxiety. 6. Rehabilitation and Mobility 7. COPD 8. Urine Culture Positive, VRE Subjective 24 Hr Interval Summary Free Text/Dictation NAD, refusing insulin. dw staff. Exam/Review of Systems Vital Signs Vitals Vital Signs Date Time Temp Pulse Resp B/P Pulse Ox O2 Delivery O2 Flow Rate FiO2 04/11/16 19:34 98.9 20 19 115/60 98 04/11/16 17:14 Nasal Cannula 3.0 Intake and Output 04/10/16 04/10/16 04/11/16 15:00 23:00 07:00 Intake Total 720 ml 660 ml Output Total 150 ml 270 ml Balance 570 ml 390 ml Exam Constitutional: alert Psych: nl mood/affect Eyes: PERRL, nl sclera ENMT: nl external ears & nose Neck: non-tender Respiratory: diminished breath sounds Cardiovascular: nl pulses Gastrointestinal: non-tender, soft Extremities: normal pulses Results Result Diagram: 04/08/16 0600 04/08/16 0600 Results 24 hrs Laboratory Tests Test 04/11/16 07:31 04/11/16 12:01 04/11/16 17:30 04/11/16 17:58 Bedside Glucose 176 178 75 88 Test 04/11/16 20:07 Bedside Glucose 172 Medications Medications Current Medications Acetaminophen (Tylenol Tab) 650 mg Q6H PRN PO MILD PAIN 1-3 OR TEMP.>100.4F; Start 04/07/16 at 20:00 Acetaminophen (Tylenol Supp) 650 mg Q6H PRN [place] MILD PAIN 1-3 OR TEMP.>100.4F; Start 04/07/16 at 20:00 Amlodipine Besylate (Norvasc) 5 mg QAM PO Last administered on 04/11/16 09:25 ; Admin Dose 5 MG; Start 04/08/16 at 09:00 Atenolol (Tenormin) 50 mg DAILY PO Last administered on 04/11/16 09:24; Admin Dose 50 MG; Start 04/08/16 at 09:00 Atorvastatin Calcium (Lipitor) 10 mg DAILY@21 PO Last administered on 21:14; Admin Dose 10 MG; Start 04/07/16 at 21:00 Bisacodyl (Dulcolax Supp) 10 mg DAILY PRN [place] CONSTIPATION; Start 04/07/16 at 20 :00 Clonidine (Catapres) 0.1 mg Q6H PRN PO SBP ABOVE 160; DBP ABOVE 100; Start at 20:00 Diphenhydramine HCl (Benadryl) 25 mg Q6H PRN PO ITCHING; Start 04/07/16 at 20: 00 Escitalopram Oxalate (Lexapro) 10 mg DAILY PO Last administered on 04/11/16 09 :24; Admin Dose 10 MG; Start 04/08/16 at 09:00 Ferrous Sulfate (Ferrous Sulfate (Ec)) 325 mg QAM PO Last administered on 09:24; Admin Dose 325 MG; Start 04/08/16 at 09:00 Fluticasone Propionate (Flonase 0.05% Nasal) 2 spray DAILY NASAL ; Start at 09:00 Hydroxyzine HCl (Atarax) 25 mg Q6H PRN PO ITCHING; Start 04/07/16 at 20:00 Insulin Glargine (Lantus) 25 unit HS SC Last administered on 04/10/16 21:20; Admin Dose 25 UNIT; Start 04/07/16 at 21:00 Loperamide HCl (Imodium Cap) 2 mg Q4H PRN PO DIARRHEA; Start 04/07/16 at 20:00 Nitroglycerin (Nitroglycerin (Sl Tab) 0.4 Mg) 1 tab Q5M PRN SL CHEST PAIN; Start 04/07/16 at 20:00 Ondansetron HCl (Zofran Inj) 4 mg Q4H PRN IV NAUSEA AND/OR VOMITING; Start at 20:00 Salmeterol Xinafoate/ Fluticasone (Advair 250/50 Diskus) 1 inh BID INH Last administered on 04/11/16 08:00; Admin Dose 1 INH; Start 04/07/16 at 21:00 Tramadol HCl (Ultram) 50 mg Q6H PRN PO SEVERE PAIN Last administered on 09:37; Admin Dose 50 MG; Start 04/07/16 at 20:00 Triamcinolone Acetonide (Kenalog 0.1% Cr) 1 applic BID TOP Last administered on 04/08/16 20:49; Admin Dose 1 APPLIC; Start 04/07/16 at 21:00 Zolpidem Tartrate (Ambien) 5 mg HS PRN PO INSOMNIA; Start 04/07/16 at 20:00 Miscellaneous Information 1 ea NOTE XX ; Start 04/07/16 at 20:00 Glucose (Glutose) 15 gm Q15M PRN PO DECREASED GLUCOSE; Start 04/07/16 at 20:00 Glucose (Glutose) 22.5 gm Q15M PRN PO DECREASED GLUCOSE; Start 04/07/16 at 20: 00 Dextrose (D50w Syringe) 25 ml Q15M PRN IV DECREASED GLUCOSE; Start 04/07/16 at 20:00 Dextrose (D50w Syringe) 50 ml Q15M PRN IV DECREASED GLUCOSE; Start 04/07/16 at 20:00 Glucagon (Glucagen) 1 mg Q15M PRN IM DECREASED GLUCOSE; Start 04/07/16 at 20:00 Glucose (Glutose) 15 gm Q15M PRN BUCCAL DECREASED GLUCOSE; Start 04/07/16 at 20 :00 Docusate Sodium (Colace) 100 mg BID PO Last administered on 04/11/16 09:23; Admin Dose 100 MG; Start 04/08/16 at 09:00 Senna (Senokot) 1 tab HS PO Last administered on 04/08/16 20:43; Admin Dose 1 TAB; Start 04/08/16 at 21:00 Acetaminophen (Tylenol Tab) 650 mg Q4H PRN PO PAIN; Start 04/08/16 at 03:00 Magnesium Hydroxide (Milk Of Mag) 30 ml BID PRN PO CONSTIPATION; Start at 03:00 Lactulose (Enulose) 20 gm DAILY PRN PO CONSTIPATION; Start 04/08/16 at 03:00 Bisacodyl (Dulcolax Supp) 10 mg DAILY PRN [place] CONSTIPATION; Start 04/08/16 at 03 :00 VARGAS BABIN Apr 11, 2016 20:39
[2016-04-11] MEDS: INSULIN GLARGINE [LANtus] 3 ML PEN SC SCH (20:40)
[2016-04-11] MEDS: SENNA TAB PO SCH (21:00)
[2016-04-12 07:30] VITALS: BP 146/71; RESP 20
[2016-04-12] MEDS: INSULIN ASPART [NOVOLOG] 3 ML PEN SC SCH ×3 (08:03→17:01)
[2016-04-12] MEDS: [UNRECOGNIZED DRUG - OTHER] SC SCH ×4 (08:04→21:00)
[2016-04-12] MEDS: SALMETEROL/FLUTICASONE 250/50 INHA INH SCH ×2 (08:11→20:34)
[2016-04-12] MEDS: DOCUSATE SODIUM 100 MG CAP PO SCH ×2 (08:11→21:00)
[2016-04-12] MEDS: FLUTICASONE 0.05% 16 GM NAS SPRAY NASAL SCH (08:11)
[2016-04-12] MEDS: AMLODIPINE 5 MG TAB PO SCH (08:11)
[2016-04-12] MEDS: ATENOLOL 50 MG TAB PO SCH (08:12)
[2016-04-12] MEDS: ESCITALOPRAM 10 MG TAB PO SCH (08:12)
[2016-04-12] MEDS: FERROUS SULFATE (EC) 325 MG TAB PO SCH (08:12)
[2016-04-12] MEDS: TRIAMCINOLONE ACET 0.1% 15 GM CR TOP SCH ×2 (08:13→21:00)
[2016-04-12] MEDS: traMADol 50 MG TAB PO PRN ×2 (08:20→20:47)
[2016-04-12] MEDS: ALBUTEROL 0.5% (NEB) 2.5 MG/0.5 ML AMP INH SCH ×4 (09:48→21:10)
[2016-04-12] MEDS: IPRATROPIUM (NEB) 0.5 MG/2.5 ML AMP INH SCH ×4 (09:48→21:10)
--- NOTE | 2016-04-12 12:25 | CONS ---
Date/Time of Note Date/Time of Note DATE: 04/12/16 TIME: 12:24 Consult Date/Type/Reason Admit Date/Time Apr 07, 2016 at 18:53 Subjective No New complaints Objective pulm-cta min assist ambulation Vital Signs Date Time Temp Pulse Resp B/P Pulse Ox O2 Delivery O2 Flow Rate FiO2 04/12/16 09:56 3.0 04/12/16 09:48 95 20 98 Nasal Cannula 04/12/16 07:30 97.8 146/71 Intake and Output 04/11/16 04/11/16 04/12/16 15:00 23:00 07:00 Intake Total 600 ml 770 ml 320 ml Output Total 300 ml Balance 300 ml 770 ml 320 ml Results/Medications Result Diagram: 04/08/16 0600 04/08/16 0600 Results 24 hrs Laboratory Tests Test 04/11/16 17:30 04/11/16 17:58 04/11/16 20:07 04/12/16 08:00 Bedside Glucose 75 88 172 161 Test 04/12/16 12:00 Bedside Glucose 125 Medications Current Medications Acetaminophen (Tylenol Tab) 650 mg Q6H PRN PO MILD PAIN 1-3 OR TEMP.>100.4F; Start 04/07/16 at 20:00 Acetaminophen (Tylenol Supp) 650 mg Q6H PRN [place] MILD PAIN 1-3 OR TEMP.>100.4F; Start 04/07/16 at 20:00 Amlodipine Besylate (Norvasc) 5 mg QAM PO Last administered on 04/12/16 08:11 ; Admin Dose 5 MG; Start 04/08/16 at 09:00 Atenolol (Tenormin) 50 mg DAILY PO Last administered on 04/12/16 08:12; Admin Dose 50 MG; Start 04/08/16 at 09:00 Atorvastatin Calcium (Lipitor) 10 mg DAILY@21 PO Last administered on 20:31; Admin Dose 10 MG; Start 04/07/16 at 21:00 Bisacodyl (Dulcolax Supp) 10 mg DAILY PRN [place] CONSTIPATION; Start 04/07/16 at 20 :00 Clonidine (Catapres) 0.1 mg Q6H PRN PO SBP ABOVE 160; DBP ABOVE 100; Start at 20:00 Diphenhydramine HCl (Benadryl) 25 mg Q6H PRN PO ITCHING; Start 04/07/16 at 20: 00 Escitalopram Oxalate (Lexapro) 10 mg DAILY PO Last administered on 04/12/16 08 :12; Admin Dose 10 MG; Start 04/08/16 at 09:00 Ferrous Sulfate (Ferrous Sulfate (Ec)) 325 mg QAM PO Last administered on 08:12; Admin Dose 325 MG; Start 04/08/16 at 09:00 Fluticasone Propionate (Flonase 0.05% Nasal) 2 spray DAILY NASAL Last administered on 04/12/16 08:11; Admin Dose 2 SPRAY; Start 04/08/16 at 09:00 Hydroxyzine HCl (Atarax) 25 mg Q6H PRN PO ITCHING; Start 04/07/16 at 20:00 Insulin Glargine (Lantus) 25 unit HS SC Last administered on 04/11/16 20:40; Admin Dose 25 UNIT; Start 04/07/16 at 21:00 Loperamide HCl (Imodium Cap) 2 mg Q4H PRN PO DIARRHEA; Start 04/07/16 at 20:00 Nitroglycerin (Nitroglycerin (Sl Tab) 0.4 Mg) 1 tab Q5M PRN SL CHEST PAIN; Start 04/07/16 at 20:00 Ondansetron HCl (Zofran Inj) 4 mg Q4H PRN IV NAUSEA AND/OR VOMITING; Start at 20:00 Salmeterol Xinafoate/ Fluticasone (Advair 250/50 Diskus) 1 inh BID INH Last administered on 04/12/16 08:11; Admin Dose 1 INH; Start 04/07/16 at 21:00 Tramadol HCl (Ultram) 50 mg Q6H PRN PO SEVERE PAIN Last administered on 08:20; Admin Dose 50 MG; Start 04/07/16 at 20:00 Triamcinolone Acetonide (Kenalog 0.1% Cr) 1 applic BID TOP Last administered on 04/08/16 20:49; Admin Dose 1 APPLIC; Start 04/07/16 at 21:00 Zolpidem Tartrate (Ambien) 5 mg HS PRN PO INSOMNIA; Start 04/07/16 at 20:00 Miscellaneous Information 1 ea NOTE XX ; Start 04/07/16 at 20:00 Glucose (Glutose) 15 gm Q15M PRN PO DECREASED GLUCOSE; Start 04/07/16 at 20:00 Glucose (Glutose) 22.5 gm Q15M PRN PO DECREASED GLUCOSE; Start 04/07/16 at 20: 00 Dextrose (D50w Syringe) 25 ml Q15M PRN IV DECREASED GLUCOSE; Start 04/07/16 at 20:00 Dextrose (D50w Syringe) 50 ml Q15M PRN IV DECREASED GLUCOSE; Start 04/07/16 at 20:00 Glucagon (Glucagen) 1 mg Q15M PRN IM DECREASED GLUCOSE; Start 04/07/16 at 20:00 Glucose (Glutose) 15 gm Q15M PRN BUCCAL DECREASED GLUCOSE; Start 04/07/16 at 20 :00 Docusate Sodium (Colace) 100 mg BID PO Last administered on 04/12/16 08:11; Admin Dose 100 MG; Start 04/08/16 at 09:00 Senna (Senokot) 1 tab HS PO Last administered on 04/08/16 20:43; Admin Dose 1 TAB; Start 04/08/16 at 21:00 Acetaminophen (Tylenol Tab) 650 mg Q4H PRN PO PAIN; Start 04/08/16 at 03:00 Magnesium Hydroxide (Milk Of Mag) 30 ml BID PRN PO CONSTIPATION; Start at 03:00 Lactulose (Enulose) 20 gm DAILY PRN PO CONSTIPATION; Start 04/08/16 at 03:00 Bisacodyl (Dulcolax Supp) 10 mg DAILY PRN [place] CONSTIPATION; Start 04/08/16 at 03 :00 Assessment/Plan Additional Assessment/Plan Rehab- Pulmonary debility Continue treatment plan DM diabetic neuropathy CKD SISSY CARBALLO MD Apr 12, 2016 12:25
--- NOTE | 2016-04-12 16:00 | PN ---
Date/Time of Note Date/Time of Note DATE: 04/12/16 TIME: 15:58 Assessment/Plan VTE Prophylaxis VTE Prophylaxis Intervention: other Lines/Catheters Urinary Cath still in place: No Assessment/Plan Chief Complaint/Hosp Course 1. Diabetes mellitus type 2. - monitor blood sugar 2. Hypertension. - BP ok 3. Diabetic neuropathy. - monitor 4. debilitation - Rehabilitation and Mobility Problems: Subjective 24 Hr Interval Summary Free Text/Dictation Patient has no complaints, is happy about progress in physical therapy Exam/Review of Systems Vital Signs Vitals Vital Signs Date Time Temp Pulse Resp B/P Pulse Ox O2 Delivery O2 Flow Rate FiO2 04/12/16 13:12 3.0 04/12/16 13:05 90 20 98 Nasal Cannula 04/12/16 07:30 97.8 146/71 Intake and Output 04/11/16 04/11/16 04/12/16 15:00 23:00 07:00 Intake Total 600 ml 770 ml 320 ml Output Total 300 ml Balance 300 ml 770 ml 320 ml Exam Head: atraumatic, normocephalic Respiratory: clear to auscultation Cardiovascular: regular rate and rhythm Gastrointestinal: non-tender, soft Extremities: normal pulses Results Result Diagram: 04/08/16 0600 04/08/16 0600 Results 24 hrs Laboratory Tests Test 04/11/16 17:30 04/11/16 17:58 04/11/16 20:07 04/12/16 08:00 Bedside Glucose 75 88 172 161 Test 04/12/16 12:00 Bedside Glucose 125 Medications Medications Current Medications Acetaminophen (Tylenol Tab) 650 mg Q6H PRN PO MILD PAIN 1-3 OR TEMP.>100.4F; Start 04/07/16 at 20:00 Acetaminophen (Tylenol Supp) 650 mg Q6H PRN [place] MILD PAIN 1-3 OR TEMP.>100.4F; Start 04/07/16 at 20:00 Amlodipine Besylate (Norvasc) 5 mg QAM PO Last administered on 04/12/16 08:11 ; Admin Dose 5 MG; Start 04/08/16 at 09:00 Atenolol (Tenormin) 50 mg DAILY PO Last administered on 04/12/16 08:12; Admin Dose 50 MG; Start 04/08/16 at 09:00 Atorvastatin Calcium (Lipitor) 10 mg DAILY@21 PO Last administered on 20:31; Admin Dose 10 MG; Start 04/07/16 at 21:00 Bisacodyl (Dulcolax Supp) 10 mg DAILY PRN [place] CONSTIPATION; Start 04/07/16 at 20 :00 Clonidine (Catapres) 0.1 mg Q6H PRN PO SBP ABOVE 160; DBP ABOVE 100; Start at 20:00 Diphenhydramine HCl (Benadryl) 25 mg Q6H PRN PO ITCHING; Start 04/07/16 at 20: 00 Escitalopram Oxalate (Lexapro) 10 mg DAILY PO Last administered on 04/12/16 08 :12; Admin Dose 10 MG; Start 04/08/16 at 09:00 Ferrous Sulfate (Ferrous Sulfate (Ec)) 325 mg QAM PO Last administered on 08:12; Admin Dose 325 MG; Start 04/08/16 at 09:00 Fluticasone Propionate (Flonase 0.05% Nasal) 2 spray DAILY NASAL Last administered on 04/12/16 08:11; Admin Dose 2 SPRAY; Start 04/08/16 at 09:00 Hydroxyzine HCl (Atarax) 25 mg Q6H PRN PO ITCHING; Start 04/07/16 at 20:00 Insulin Glargine (Lantus) 25 unit HS SC Last administered on 04/11/16 20:40; Admin Dose 25 UNIT; Start 04/07/16 at 21:00 Loperamide HCl (Imodium Cap) 2 mg Q4H PRN PO DIARRHEA; Start 04/07/16 at 20:00 Nitroglycerin (Nitroglycerin (Sl Tab) 0.4 Mg) 1 tab Q5M PRN SL CHEST PAIN; Start 04/07/16 at 20:00 Ondansetron HCl (Zofran Inj) 4 mg Q4H PRN IV NAUSEA AND/OR VOMITING; Start at 20:00 Salmeterol Xinafoate/ Fluticasone (Advair 250/50 Diskus) 1 inh BID INH Last administered on 04/12/16 08:11; Admin Dose 1 INH; Start 04/07/16 at 21:00 Tramadol HCl (Ultram) 50 mg Q6H PRN PO SEVERE PAIN Last administered on 08:20; Admin Dose 50 MG; Start 04/07/16 at 20:00 Triamcinolone Acetonide (Kenalog 0.1% Cr) 1 applic BID TOP Last administered on 04/08/16 20:49; Admin Dose 1 APPLIC; Start 04/07/16 at 21:00 Zolpidem Tartrate (Ambien) 5 mg HS PRN PO INSOMNIA; Start 04/07/16 at 20:00 Miscellaneous Information 1 ea NOTE XX ; Start 04/07/16 at 20:00 Glucose (Glutose) 15 gm Q15M PRN PO DECREASED GLUCOSE; Start 04/07/16 at 20:00 Glucose (Glutose) 22.5 gm Q15M PRN PO DECREASED GLUCOSE; Start 04/07/16 at 20: 00 Dextrose (D50w Syringe) 25 ml Q15M PRN IV DECREASED GLUCOSE; Start 04/07/16 at 20:00 Dextrose (D50w Syringe) 50 ml Q15M PRN IV DECREASED GLUCOSE; Start 04/07/16 at 20:00 Glucagon (Glucagen) 1 mg Q15M PRN IM DECREASED GLUCOSE; Start 04/07/16 at 20:00 Glucose (Glutose) 15 gm Q15M PRN BUCCAL DECREASED GLUCOSE; Start 04/07/16 at 20 :00 Docusate Sodium (Colace) 100 mg BID PO Last administered on 04/12/16 08:11; Admin Dose 100 MG; Start 04/08/16 at 09:00 Senna (Senokot) 1 tab HS PO Last administered on 04/08/16 20:43; Admin Dose 1 TAB; Start 04/08/16 at 21:00 Acetaminophen (Tylenol Tab) 650 mg Q4H PRN PO PAIN; Start 04/08/16 at 03:00 Magnesium Hydroxide (Milk Of Mag) 30 ml BID PRN PO CONSTIPATION; Start at 03:00 Lactulose (Enulose) 20 gm DAILY PRN PO CONSTIPATION; Start 04/08/16 at 03:00 Bisacodyl (Dulcolax Supp) 10 mg DAILY PRN [place] CONSTIPATION; Start 04/08/16 at 03 :00 OCTAVIA OLIVERA Apr 12, 2016 15:59
[2016-04-12] MEDS: ATORVASTATIN 10 MG TAB PO SCH (20:35)
[2016-04-12] MEDS: INSULIN GLARGINE [LANtus] 3 ML PEN SC SCH (20:39)
[2016-04-12 20:46] VITALS: BP 164/61; RESP 18
[2016-04-12] MEDS: DIPHENHYDRAMINE 25 MG CAP PO PRN (20:47)
[2016-04-12] MEDS: SENNA TAB PO SCH (21:00)
[2016-04-13] MEDS: [UNRECOGNIZED DRUG - OTHER] SC SCH ×4 (07:35→21:00)
[2016-04-13] MEDS: INSULIN ASPART [NOVOLOG] 3 ML PEN SC SCH ×3 (08:04→17:28)
[2016-04-13] MEDS: SALMETEROL/FLUTICASONE 250/50 INHA INH SCH ×2 (08:04→20:23)
[2016-04-13] MEDS: ESCITALOPRAM 10 MG TAB PO SCH (08:21)
[2016-04-13] MEDS: ATENOLOL 50 MG TAB PO SCH (08:21)
[2016-04-13] MEDS: AMLODIPINE 5 MG TAB PO SCH (08:21)
[2016-04-13] MEDS: FLUTICASONE 0.05% 16 GM NAS SPRAY NASAL SCH (08:22)
[2016-04-13] MEDS: FERROUS SULFATE (EC) 325 MG TAB PO SCH (08:23)
[2016-04-13] MEDS: DOCUSATE SODIUM 100 MG CAP PO SCH ×2 (08:23→21:00)
[2016-04-13] MEDS: TRIAMCINOLONE ACET 0.1% 15 GM CR TOP SCH ×2 (08:23→21:00)
[2016-04-13 09:01] VITALS: BP 155/67; RESP 18
[2016-04-13] MEDS: IPRATROPIUM (NEB) 0.5 MG/2.5 ML AMP INH SCH ×4 (09:59→21:12)
[2016-04-13] MEDS: ALBUTEROL 0.5% (NEB) 2.5 MG/0.5 ML AMP INH SCH ×4 (09:59→21:11)
--- NOTE | 2016-04-13 10:15 | CONS ---
Date/Time of Note Date/Time of Note DATE: 04/13/16 TIME: 10:15 Consult Date/Type/Reason Admit Date/Time Apr 07, 2016 at 18:53 Subjective Up for therapies this morning Objective min assist ambulation Vital Signs Date Time Temp Pulse Resp B/P Pulse Ox O2 Delivery O2 Flow Rate FiO2 04/13/16 10:00 85 20 97 3.0 04/13/16 09:01 97.9 155/67 04/13/16 08:00 Nasal Cannula Intake and Output 04/12/16 04/12/16 04/13/16 15:00 23:00 07:00 Intake Total 1170 ml Balance 1170 ml Results/Medications Results 24 hrs Laboratory Tests Test 04/12/16 12:00 04/12/16 16:55 04/12/16 20:22 04/13/16 07:43 Bedside Glucose 125 147 224 H 143 Medications Current Medications Acetaminophen (Tylenol Tab) 650 mg Q6H PRN PO MILD PAIN 1-3 OR TEMP.>100.4F; Start 04/07/16 at 20:00 Acetaminophen (Tylenol Supp) 650 mg Q6H PRN [place] MILD PAIN 1-3 OR TEMP.>100.4F; Start 04/07/16 at 20:00 Amlodipine Besylate (Norvasc) 5 mg QAM PO Last administered on 04/13/16 08:21 ; Admin Dose 5 MG; Start 04/08/16 at 09:00 Atenolol (Tenormin) 50 mg DAILY PO Last administered on 04/13/16 08:21; Admin Dose 50 MG; Start 04/08/16 at 09:00 Atorvastatin Calcium (Lipitor) 10 mg DAILY@21 PO Last administered on 20:35; Admin Dose 10 MG; Start 04/07/16 at 21:00 Bisacodyl (Dulcolax Supp) 10 mg DAILY PRN [place] CONSTIPATION; Start 04/07/16 at 20 :00 Clonidine (Catapres) 0.1 mg Q6H PRN PO SBP ABOVE 160; DBP ABOVE 100 Last administered on 04/12/16 20:55; Admin Dose 0.1 MG; Start 04/07/16 at 20:00 Diphenhydramine HCl (Benadryl) 25 mg Q6H PRN PO ITCHING Last administered on 20:47; Admin Dose 25 MG; Start 04/07/16 at 20:00 Escitalopram Oxalate (Lexapro) 10 mg DAILY PO Last administered on 04/13/16 08 :21; Admin Dose 10 MG; Start 04/08/16 at 09:00 Ferrous Sulfate (Ferrous Sulfate (Ec)) 325 mg QAM PO Last administered on 08:12; Admin Dose 325 MG; Start 04/08/16 at 09:00 Fluticasone Propionate (Flonase 0.05% Nasal) 2 spray DAILY NASAL Last administered on 04/12/16 08:11; Admin Dose 2 SPRAY; Start 04/08/16 at 09:00 Hydroxyzine HCl (Atarax) 25 mg Q6H PRN PO ITCHING; Start 04/07/16 at 20:00 Insulin Glargine (Lantus) 25 unit HS SC Last administered on 04/12/16 20:39; Admin Dose 25 UNIT; Start 04/07/16 at 21:00 Loperamide HCl (Imodium Cap) 2 mg Q4H PRN PO DIARRHEA; Start 04/07/16 at 20:00 Nitroglycerin (Nitroglycerin (Sl Tab) 0.4 Mg) 1 tab Q5M PRN SL CHEST PAIN; Start 04/07/16 at 20:00 Ondansetron HCl (Zofran Inj) 4 mg Q4H PRN IV NAUSEA AND/OR VOMITING; Start at 20:00 Salmeterol Xinafoate/ Fluticasone (Advair 250/50 Diskus) 1 inh BID INH Last administered on 04/13/16 08:04; Admin Dose 1 INH; Start 04/07/16 at 21:00 Tramadol HCl (Ultram) 50 mg Q6H PRN PO SEVERE PAIN Last administered on 20:47; Admin Dose 50 MG; Start 04/07/16 at 20:00 Triamcinolone Acetonide (Kenalog 0.1% Cr) 1 applic BID TOP Last administered on 04/08/16 20:49; Admin Dose 1 APPLIC; Start 04/07/16 at 21:00 Zolpidem Tartrate (Ambien) 5 mg HS PRN PO INSOMNIA; Start 04/07/16 at 20:00 Miscellaneous Information 1 ea NOTE XX ; Start 04/07/16 at 20:00 Glucose (Glutose) 15 gm Q15M PRN PO DECREASED GLUCOSE; Start 04/07/16 at 20:00 Glucose (Glutose) 22.5 gm Q15M PRN PO DECREASED GLUCOSE; Start 04/07/16 at 20: 00 Dextrose (D50w Syringe) 25 ml Q15M PRN IV DECREASED GLUCOSE; Start 04/07/16 at 20:00 Dextrose (D50w Syringe) 50 ml Q15M PRN IV DECREASED GLUCOSE; Start 04/07/16 at 20:00 Glucagon (Glucagen) 1 mg Q15M PRN IM DECREASED GLUCOSE; Start 04/07/16 at 20:00 Glucose (Glutose) 15 gm Q15M PRN BUCCAL DECREASED GLUCOSE; Start 04/07/16 at 20 :00 Docusate Sodium (Colace) 100 mg BID PO Last administered on 04/12/16 08:11; Admin Dose 100 MG; Start 04/08/16 at 09:00 Senna (Senokot) 1 tab HS PO Last administered on 04/08/16 20:43; Admin Dose 1 TAB; Start 04/08/16 at 21:00 Acetaminophen (Tylenol Tab) 650 mg Q4H PRN PO PAIN; Start 04/08/16 at 03:00 Magnesium Hydroxide (Milk Of Mag) 30 ml BID PRN PO CONSTIPATION; Start at 03:00 Lactulose (Enulose) 20 gm DAILY PRN PO CONSTIPATION; Start 04/08/16 at 03:00 Bisacodyl (Dulcolax Supp) 10 mg DAILY PRN [place] CONSTIPATION; Start 04/08/16 at 03 :00 Assessment/Plan Additional Assessment/Plan Rehab- Pulmonary debility Continue to increase activities as tolerated DM diabetic neuropathy CKD SISSY CARBALLO MD Apr 13, 2016 10:15
--- NOTE | 2016-04-13 11:56 | PN ---
Date/Time of Note Date/Time of Note DATE: 04/13/16 TIME: 11:55 Assessment/Plan VTE Prophylaxis VTE Prophylaxis Intervention: other Lines/Catheters Urinary Cath still in place: No Assessment/Plan Chief Complaint/Hosp Course 1. Diabetes mellitus type 2. - monitor blood sugar 2. Hypertension. - BP ok 3. Diabetic neuropathy. - monitor 4. debilitation - Rehabilitation and Mobility 5. diarrhea - check for cdiff Problems: Subjective 24 Hr Interval Summary Free Text/Dictation Patient had diarrhea Exam/Review of Systems Vital Signs Vitals Vital Signs Date Time Temp Pulse Resp B/P Pulse Ox O2 Delivery O2 Flow Rate FiO2 04/13/16 10:00 85 20 97 3.0 04/13/16 09:01 97.9 155/67 04/13/16 08:00 Nasal Cannula Intake and Output 04/12/16 04/12/16 04/13/16 15:00 23:00 07:00 Intake Total 1170 ml Balance 1170 ml Exam Constitutional: well developed Head: atraumatic, normocephalic Neck: supple Respiratory: clear to auscultation Cardiovascular: regular rate and rhythm Gastrointestinal: non-tender, soft Results Results 24 hrs Laboratory Tests Test 04/12/16 12:00 04/12/16 16:55 04/12/16 20:22 04/13/16 07:43 Bedside Glucose 125 147 224 H 143 Medications Medications Current Medications Acetaminophen (Tylenol Tab) 650 mg Q6H PRN PO MILD PAIN 1-3 OR TEMP.>100.4F; Start 04/07/16 at 20:00 Acetaminophen (Tylenol Supp) 650 mg Q6H PRN [place] MILD PAIN 1-3 OR TEMP.>100.4F; Start 04/07/16 at 20:00 Amlodipine Besylate (Norvasc) 5 mg QAM PO Last administered on 04/13/16 08:21 ; Admin Dose 5 MG; Start 04/08/16 at 09:00 Atenolol (Tenormin) 50 mg DAILY PO Last administered on 04/13/16 08:21; Admin Dose 50 MG; Start 04/08/16 at 09:00 Atorvastatin Calcium (Lipitor) 10 mg DAILY@21 PO Last administered on 20:35; Admin Dose 10 MG; Start 04/07/16 at 21:00 Bisacodyl (Dulcolax Supp) 10 mg DAILY PRN [place] CONSTIPATION; Start 04/07/16 at 20 :00 Clonidine (Catapres) 0.1 mg Q6H PRN PO SBP ABOVE 160; DBP ABOVE 100 Last administered on 04/12/16 20:55; Admin Dose 0.1 MG; Start 04/07/16 at 20:00 Diphenhydramine HCl (Benadryl) 25 mg Q6H PRN PO ITCHING Last administered on 20:47; Admin Dose 25 MG; Start 04/07/16 at 20:00 Escitalopram Oxalate (Lexapro) 10 mg DAILY PO Last administered on 04/13/16 08 :21; Admin Dose 10 MG; Start 04/08/16 at 09:00 Ferrous Sulfate (Ferrous Sulfate (Ec)) 325 mg QAM PO Last administered on 08:12; Admin Dose 325 MG; Start 04/08/16 at 09:00 Fluticasone Propionate (Flonase 0.05% Nasal) 2 spray DAILY NASAL Last administered on 04/12/16 08:11; Admin Dose 2 SPRAY; Start 04/08/16 at 09:00 Hydroxyzine HCl (Atarax) 25 mg Q6H PRN PO ITCHING; Start 04/07/16 at 20:00 Insulin Glargine (Lantus) 25 unit HS SC Last administered on 04/12/16 20:39; Admin Dose 25 UNIT; Start 04/07/16 at 21:00 Loperamide HCl (Imodium Cap) 2 mg Q4H PRN PO DIARRHEA; Start 04/07/16 at 20:00 Nitroglycerin (Nitroglycerin (Sl Tab) 0.4 Mg) 1 tab Q5M PRN SL CHEST PAIN; Start 04/07/16 at 20:00 Ondansetron HCl (Zofran Inj) 4 mg Q4H PRN IV NAUSEA AND/OR VOMITING; Start at 20:00 Salmeterol Xinafoate/ Fluticasone (Advair 250/50 Diskus) 1 inh BID INH Last administered on 04/13/16 08:04; Admin Dose 1 INH; Start 04/07/16 at 21:00 Tramadol HCl (Ultram) 50 mg Q6H PRN PO SEVERE PAIN Last administered on 20:47; Admin Dose 50 MG; Start 04/07/16 at 20:00 Triamcinolone Acetonide (Kenalog 0.1% Cr) 1 applic BID TOP Last administered on 04/08/16 20:49; Admin Dose 1 APPLIC; Start 04/07/16 at 21:00 Zolpidem Tartrate (Ambien) 5 mg HS PRN PO INSOMNIA; Start 04/07/16 at 20:00 Miscellaneous Information 1 ea NOTE XX ; Start 04/07/16 at 20:00 Glucose (Glutose) 15 gm Q15M PRN PO DECREASED GLUCOSE; Start 04/07/16 at 20:00 Glucose (Glutose) 22.5 gm Q15M PRN PO DECREASED GLUCOSE; Start 04/07/16 at 20: 00 Dextrose (D50w Syringe) 25 ml Q15M PRN IV DECREASED GLUCOSE; Start 04/07/16 at 20:00 Dextrose (D50w Syringe) 50 ml Q15M PRN IV DECREASED GLUCOSE; Start 04/07/16 at 20:00 Glucagon (Glucagen) 1 mg Q15M PRN IM DECREASED GLUCOSE; Start 04/07/16 at 20:00 Glucose (Glutose) 15 gm Q15M PRN BUCCAL DECREASED GLUCOSE; Start 04/07/16 at 20 :00 Docusate Sodium (Colace) 100 mg BID PO Last administered on 04/12/16 08:11; Admin Dose 100 MG; Start 04/08/16 at 09:00 Senna (Senokot) 1 tab HS PO Last administered on 04/08/16 20:43; Admin Dose 1 TAB; Start 04/08/16 at 21:00 Acetaminophen (Tylenol Tab) 650 mg Q4H PRN PO PAIN; Start 04/08/16 at 03:00 Magnesium Hydroxide (Milk Of Mag) 30 ml BID PRN PO CONSTIPATION; Start at 03:00 Lactulose (Enulose) 20 gm DAILY PRN PO CONSTIPATION; Start 04/08/16 at 03:00 Bisacodyl (Dulcolax Supp) 10 mg DAILY PRN [place] CONSTIPATION; Start 04/08/16 at 03 :00 OCTAVIA OLIVERA Apr 13, 2016 11:56
[2016-04-13] MEDS: ATORVASTATIN 10 MG TAB PO SCH (20:24)
[2016-04-13] MEDS: traMADol 50 MG TAB PO PRN (20:24)
[2016-04-13] MEDS: INSULIN GLARGINE [LANtus] 3 ML PEN SC SCH (20:32)
[2016-04-13] MEDS: DIPHENHYDRAMINE 25 MG CAP PO PRN (20:33)
[2016-04-13 20:38] VITALS: BP 136/63; RESP 18
[2016-04-13] MEDS: SENNA TAB PO SCH (21:00)
[2016-04-14] MEDS: INSULIN ASPART [NOVOLOG] 3 ML PEN SC SCH ×3 (07:48→17:15)
[2016-04-14] MEDS: [UNRECOGNIZED DRUG - OTHER] SC SCH ×4 (07:49→20:53)
[2016-04-14] MEDS: SALMETEROL/FLUTICASONE 250/50 INHA INH SCH ×2 (08:46→20:44)
[2016-04-14] MEDS: ATENOLOL 50 MG TAB PO SCH (08:52)
[2016-04-14] MEDS: ESCITALOPRAM 10 MG TAB PO SCH (08:52)
[2016-04-14] MEDS: AMLODIPINE 5 MG TAB PO SCH (08:52)
[2016-04-14] MEDS: FERROUS SULFATE (EC) 325 MG TAB PO SCH (08:55)
[2016-04-14] MEDS: TRIAMCINOLONE ACET 0.1% 15 GM CR TOP SCH ×2 (08:55→21:00)
[2016-04-14] MEDS: DOCUSATE SODIUM 100 MG CAP PO SCH ×2 (08:55→20:53)
[2016-04-14] MEDS: FLUTICASONE 0.05% 16 GM NAS SPRAY NASAL SCH (08:55)
[2016-04-14 09:00] VITALS: BP 127/65; RESP 20
[2016-04-14] MEDS: IPRATROPIUM (NEB) 0.5 MG/2.5 ML AMP INH SCH ×4 (09:43→20:21)
[2016-04-14] MEDS: ALBUTEROL 0.5% (NEB) 2.5 MG/0.5 ML AMP INH SCH ×4 (09:43→20:21)
--- NOTE | 2016-04-14 12:38 | PN ---
Date/Time of Note Date/Time of Note DATE: 04/14/16 TIME: 12:37 Assessment/Plan VTE Prophylaxis VTE Prophylaxis Intervention: other Lines/Catheters Urinary Cath still in place: No Assessment/Plan Chief Complaint/Hosp Course 1. Diabetes mellitus type 2. - monitor blood sugar 2. Hypertension. - BP ok 3. Diabetic neuropathy. - monitor 4. debilitation - Rehabilitation and Mobility 5. diarrhea - check for cdiff Problems: Subjective 24 Hr Interval Summary Free Text/Dictation Patient is doing well with therapy Exam/Review of Systems Vital Signs Vitals Vital Signs Date Time Temp Pulse Resp B/P Pulse Ox O2 Delivery O2 Flow Rate FiO2 04/14/16 09:43 85 19 96 Nasal Cannula 3.0 04/13/16 20:38 98.0 136/63 04/13/16 14:42 32 Intake and Output 04/13/16 04/13/16 04/14/16 15:00 23:00 07:00 Intake Total 720 ml 720 ml 320 ml Output Total 200 ml Balance 520 ml 720 ml 320 ml Exam Constitutional: well developed Head: atraumatic, normocephalic Neck: supple Respiratory: clear to auscultation Cardiovascular: regular rate and rhythm Gastrointestinal: non-tender, soft Extremities: normal pulses Results Results 24 hrs Laboratory Tests Test 04/13/16 17:16 04/13/16 20:22 04/14/16 07:11 04/14/16 11:56 Bedside Glucose 184 133 199 187 Medications Medications Current Medications Acetaminophen (Tylenol Tab) 650 mg Q6H PRN PO MILD PAIN 1-3 OR TEMP.>100.4F; Start 04/07/16 at 20:00 Acetaminophen (Tylenol Supp) 650 mg Q6H PRN [place] MILD PAIN 1-3 OR TEMP.>100.4F; Start 04/07/16 at 20:00 Amlodipine Besylate (Norvasc) 5 mg QAM PO Last administered on 04/14/16 08:52 ; Admin Dose 5 MG; Start 04/08/16 at 09:00 Atenolol (Tenormin) 50 mg DAILY PO Last administered on 04/14/16 08:52; Admin Dose 50 MG; Start 04/08/16 at 09:00 Atorvastatin Calcium (Lipitor) 10 mg DAILY@ PO Last administered on 20:24; Admin Dose 10 MG; Start 04/07/16 at 21:00 Bisacodyl (Dulcolax Supp) 10 mg DAILY PRN [place] CONSTIPATION; Start 04/07/16 at 20 :00 Clonidine (Catapres) 0.1 mg Q6H PRN PO SBP ABOVE 160; DBP ABOVE 100 Last administered on 04/12/16 20:55; Admin Dose 0.1 MG; Start 04/07/16 at 20:00 Diphenhydramine HCl (Benadryl) 25 mg Q6H PRN PO ITCHING Last administered on 20:33; Admin Dose 25 MG; Start 04/07/16 at 20:00 Escitalopram Oxalate (Lexapro) 10 mg DAILY PO Last administered on 04/14/16 08 :52; Admin Dose 10 MG; Start 04/08/16 at 09:00 Ferrous Sulfate (Ferrous Sulfate (Ec)) 325 mg QAM PO Last administered on 08:12; Admin Dose 325 MG; Start 04/08/16 at 09:00 Fluticasone Propionate (Flonase 0.05% Nasal) 2 spray DAILY NASAL Last administered on 04/12/16 08:11; Admin Dose 2 SPRAY; Start 04/08/16 at 09:00 Hydroxyzine HCl (Atarax) 25 mg Q6H PRN PO ITCHING; Start 04/07/16 at 20:00 Insulin Glargine (Lantus) 25 unit HS SC Last administered on 04/13/16 20:32; Admin Dose 25 UNIT; Start 04/07/16 at 21:00 Loperamide HCl (Imodium Cap) 2 mg Q4H PRN PO DIARRHEA; Start 04/07/16 at 20:00 Nitroglycerin (Nitroglycerin (Sl Tab) 0.4 Mg) 1 tab Q5M PRN SL CHEST PAIN; Start 04/07/16 at 20:00 Ondansetron HCl (Zofran Inj) 4 mg Q4H PRN IV NAUSEA AND/OR VOMITING; Start at 20:00 Salmeterol Xinafoate/ Fluticasone (Advair 250/50 Diskus) 1 inh BID INH Last administered on 04/14/16 08:46; Admin Dose 1 INH; Start 04/07/16 at 21:00 Tramadol HCl (Ultram) 50 mg Q6H PRN PO SEVERE PAIN Last administered on 20:24; Admin Dose 50 MG; Start 04/07/16 at 20:00 Triamcinolone Acetonide (Kenalog 0.1% Cr) 1 applic BID TOP Last administered on 04/08/16 20:49; Admin Dose 1 APPLIC; Start 04/07/16 at 21:00 Zolpidem Tartrate (Ambien) 5 mg HS PRN PO INSOMNIA; Start 04/07/16 at 20:00 Miscellaneous Information 1 ea NOTE XX ; Start 04/07/16 at 20:00 Glucose (Glutose) 15 gm Q15M PRN PO DECREASED GLUCOSE; Start 04/07/16 at 20:00 Glucose (Glutose) 22.5 gm Q15M PRN PO DECREASED GLUCOSE; Start 04/07/16 at 20: 00 Dextrose (D50w Syringe) 25 ml Q15M PRN IV DECREASED GLUCOSE; Start 04/07/16 at 20:00 Dextrose (D50w Syringe) 50 ml Q15M PRN IV DECREASED GLUCOSE; Start 04/07/16 at 20:00 Glucagon (Glucagen) 1 mg Q15M PRN IM DECREASED GLUCOSE; Start 04/07/16 at 20:00 Glucose (Glutose) 15 gm Q15M PRN BUCCAL DECREASED GLUCOSE; Start 04/07/16 at 20 :00 Docusate Sodium (Colace) 100 mg BID PO Last administered on 04/12/16 08:11; Admin Dose 100 MG; Start 04/08/16 at 09:00 Senna (Senokot) 1 tab HS PO Last administered on 04/08/16 20:43; Admin Dose 1 TAB; Start 04/08/16 at 21:00 Acetaminophen (Tylenol Tab) 650 mg Q4H PRN PO PAIN; Start 04/08/16 at 03:00 Magnesium Hydroxide (Milk Of Mag) 30 ml BID PRN PO CONSTIPATION; Start at 03:00 Lactulose (Enulose) 20 gm DAILY PRN PO CONSTIPATION; Start 04/08/16 at 03:00 Bisacodyl (Dulcolax Supp) 10 mg DAILY PRN [place] CONSTIPATION; Start 04/08/16 at 03 :00 OCTAVIA OLIVERA Apr 14, 2016 12:38
[2016-04-14] MEDS: ATORVASTATIN 10 MG TAB PO SCH (20:44)
[2016-04-14] MEDS: traMADol 50 MG TAB PO PRN (20:45)
[2016-04-14] MEDS: DIPHENHYDRAMINE 25 MG CAP PO PRN (20:45)
[2016-04-14] MEDS: INSULIN GLARGINE [LANtus] 3 ML PEN SC SCH (20:52)
[2016-04-14] MEDS: SENNA TAB PO SCH (20:53)
[2016-04-14 20:59] VITALS: BP 174/66; RESP 20
[2016-04-15 07:30] VITALS: BP 188/77; RESP 20
[2016-04-15] MEDS: INSULIN ASPART [NOVOLOG] 3 ML PEN SC SCH ×3 (07:49→17:12)
[2016-04-15] MEDS: [UNRECOGNIZED DRUG - OTHER] SC SCH ×4 (07:50→21:23)
[2016-04-15 08:00] VITALS: BP 188/77; PULSE 94; RESP 20
[2016-04-15] MEDS: SALMETEROL/FLUTICASONE 250/50 INHA INH SCH ×2 (08:11→21:13)
[2016-04-15] MEDS: FLUTICASONE 0.05% 16 GM NAS SPRAY NASAL SCH (08:12)
[2016-04-15] MEDS: ATENOLOL 50 MG TAB PO SCH (08:14)
[2016-04-15] MEDS: ESCITALOPRAM 10 MG TAB PO SCH (08:14)
[2016-04-15] MEDS: AMLODIPINE 5 MG TAB PO SCH ×2 (08:16→21:00)
[2016-04-15] MEDS: DOCUSATE SODIUM 100 MG CAP PO SCH (08:18)
[2016-04-15] MEDS: FERROUS SULFATE (EC) 325 MG TAB PO SCH (08:19)
[2016-04-15] MEDS: TRIAMCINOLONE ACET 0.1% 15 GM CR TOP SCH (08:19)
[2016-04-15] MEDS: IPRATROPIUM (NEB) 0.5 MG/2.5 ML AMP INH SCH ×4 (08:51→20:53)
[2016-04-15] MEDS: ALBUTEROL 0.5% (NEB) 2.5 MG/0.5 ML AMP INH SCH ×4 (08:51→20:54)
--- NOTE | 2016-04-15 12:01 | CONS ---
Date/Time of Note Date/Time of Note DATE: 04/15/16 TIME: 11:54 Consult Date/Type/Reason Admit Date/Time Apr 07, 2016 at 18:53 Subjective Reports itching, although improved Objective Vital Signs Date Time Temp Pulse Resp B/P Pulse Ox O2 Delivery O2 Flow Rate FiO2 04/15/16 08:52 101 18 98 Nasal Cannula 3.0 04/15/16 07:30 98.1 188/77 04/13/16 14:42 32 Intake and Output 04/14/16 04/14/16 04/15/16 15:00 23:00 07:00 Intake Total 1100 ml 400 ml Balance 1100 ml 400 ml INTERDISCIPLINARY TEAM CONFERENCE BOWEL- Cont BLADDER-Cont SKIN- skin improving OT- DRESSING-cga/min BATHING-cga TOILETING-cga PT- BED MOBILITY-cga TRANSFERS-cga AMBULATION-cga 150 feet A/P- Interdisciplinary team conference held today. Please see interdisciplinary sheet. 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 Results/Medications Results 24 hrs Laboratory Tests Test 04/14/16 11:56 04/14/16 16:39 04/14/16 20:05 04/15/16 07:32 Bedside Glucose 187 198 196 200 Medications Current Medications Acetaminophen (Tylenol Tab) 650 mg Q6H PRN PO MILD PAIN 1-3 OR TEMP.>100.4F; Start 04/07/16 at 20:00 Acetaminophen (Tylenol Supp) 650 mg Q6H PRN [place] MILD PAIN 1-3 OR TEMP.>100.4F; Start 04/07/16 at 20:00 Amlodipine Besylate (Norvasc) 5 mg QAM PO Last administered on 04/15/16 08:16 ; Admin Dose 5 MG; Start 04/08/16 at 09:00 Atenolol (Tenormin) 50 mg DAILY PO Last administered on 04/15/16 08:14; Admin Dose 50 MG; Start 04/08/16 at 09:00 Atorvastatin Calcium (Lipitor) 10 mg DAILY@21 PO Last administered on 20:44; Admin Dose 10 MG; Start 04/07/16 at 21:00 Bisacodyl (Dulcolax Supp) 10 mg DAILY PRN [place] CONSTIPATION; Start 04/07/16 at 20 :00 Clonidine (Catapres) 0.1 mg Q6H PRN PO SBP ABOVE 160; DBP ABOVE 100 Last administered on 04/12/16 20:55; Admin Dose 0.1 MG; Start 04/07/16 at 20:00 Diphenhydramine HCl (Benadryl) 25 mg Q6H PRN PO ITCHING Last administered on 20:45; Admin Dose 25 MG; Start 04/07/16 at 20:00 Escitalopram Oxalate (Lexapro) 10 mg DAILY PO Last administered on 04/15/16 08 :14; Admin Dose 10 MG; Start 04/08/16 at 09:00 Ferrous Sulfate (Ferrous Sulfate (Ec)) 325 mg QAM PO Last administered on 08:12; Admin Dose 325 MG; Start 04/08/16 at 09:00 Fluticasone Propionate (Flonase 0.05% Nasal) 2 spray DAILY NASAL Last administered on 04/15/16 08:12; Admin Dose 2 SPRAY; Start 04/08/16 at 09:00 Hydroxyzine HCl (Atarax) 25 mg Q6H PRN PO ITCHING; Start 04/07/16 at 20:00 Insulin Glargine (Lantus) 25 unit HS SC Last administered on 04/14/16 20:52; Admin Dose 25 UNIT; Start 04/07/16 at 21:00 Loperamide HCl (Imodium Cap) 2 mg Q4H PRN PO DIARRHEA; Start 04/07/16 at 20:00 Nitroglycerin (Nitroglycerin (Sl Tab) 0.4 Mg) 1 tab Q5M PRN SL CHEST PAIN; Start 04/07/16 at 20:00 Ondansetron HCl (Zofran Inj) 4 mg Q4H PRN IV NAUSEA AND/OR VOMITING; Start at 20:00 Salmeterol Xinafoate/ Fluticasone (Advair 250/50 Diskus) 1 inh BID INH Last administered on 04/15/16 08:11; Admin Dose 1 INH; Start 04/07/16 at 21:00 Tramadol HCl (Ultram) 50 mg Q6H PRN PO SEVERE PAIN Last administered on 20:45; Admin Dose 50 MG; Start 04/07/16 at 20:00 Triamcinolone Acetonide (Kenalog 0.1% Cr) 1 applic BID TOP Last administered on 04/08/16 20:49; Admin Dose 1 APPLIC; Start 04/07/16 at 21:00 Zolpidem Tartrate (Ambien) 5 mg HS PRN PO INSOMNIA; Start 04/07/16 at 20:00 Miscellaneous Information 1 ea NOTE XX ; Start 04/07/16 at 20:00 Glucose (Glutose) 15 gm Q15M PRN PO DECREASED GLUCOSE; Start 04/07/16 at 20:00 Glucose (Glutose) 22.5 gm Q15M PRN PO DECREASED GLUCOSE; Start 04/07/16 at 20: 00 Dextrose (D50w Syringe) 25 ml Q15M PRN IV DECREASED GLUCOSE; Start 04/07/16 at 20:00 Dextrose (D50w Syringe) 50 ml Q15M PRN IV DECREASED GLUCOSE; Start 04/07/16 at 20:00 Glucagon (Glucagen) 1 mg Q15M PRN IM DECREASED GLUCOSE; Start 04/07/16 at 20:00 Glucose (Glutose) 15 gm Q15M PRN BUCCAL DECREASED GLUCOSE; Start 04/07/16 at 20 :00 Docusate Sodium (Colace) 100 mg BID PO Last administered on 04/12/16 08:11; Admin Dose 100 MG; Start 04/08/16 at 09:00 Senna (Senokot) 1 tab HS PO Last administered on 04/08/16 20:43; Admin Dose 1 TAB; Start 04/08/16 at 21:00 Acetaminophen (Tylenol Tab) 650 mg Q4H PRN PO PAIN; Start 04/08/16 at 03:00 Magnesium Hydroxide (Milk Of Mag) 30 ml BID PRN PO CONSTIPATION; Start at 03:00 Lactulose (Enulose) 20 gm DAILY PRN PO CONSTIPATION; Start 04/08/16 at 03:00 Bisacodyl (Dulcolax Supp) 10 mg DAILY PRN MD CONSTIPATION; Start 04/08/16 at 03 :00 SISSY CARBALLO MD Apr 15, 2016 12:01
[2016-04-15] MEDS: traMADol 50 MG TAB PO PRN (15:14)
[2016-04-15 20:00] VITALS: BP 151/67; RESP 18
[2016-04-15] MEDS: ATORVASTATIN 10 MG TAB PO SCH (21:13)
[2016-04-15] MEDS: INSULIN GLARGINE [LANtus] 3 ML PEN SC SCH (21:22)
[2016-04-15 22:58] LABS: ADD UMIC YES; URINE BILIRUBIN (Dip) NEGATIVE (NEGATIVE); URINE BLOOD (Dip) TRACE (NEGATIVE); URINE COLOR LT. YELLOW (YELLOW); URINE GLUCOSE (Dip) NEGATIVE (NEGATIVE); URINE KETONES (Dip) NEGATIVE (NEGATIVE); URINE LEUKOCYTE ESTERASE (Dip) 1+ (NEGATIVE); URINE NITRITE (Dip) NEGATIVE (NEGATIVE); URINE TOTAL PROTEIN (Dip) 2+ (NEGATIVE); URINE UROBILINOGEN (Dip) 0.2 E.U./dL (0.1-1.0)
[2016-04-15 23:08] LABS: URINE RBCS 0-2 /HPF (0)
[2016-04-15 23:09] LABS: BACTERIA,URINE FEW; SQUAMOUS EPITHELIAL CELL,UR MODERATE
--- NOTE | 2016-04-16 00:34 | PN ---
DATE: 04/15/2016 SUBJECTIVE: Follow up on COPD, diabetes, hypertension. The patient denies any chest pain. The pat ient reported continuous improvement in her shortness of breath. Itching has slightly improved. No reported hemoptysis. No reported resting leg pain. No reported fever or chills. No active wheezi ng. PHYSICAL EXAMINATION: GENERAL: The patient is conscious, awake, alert. VITAL SIGNS: Temperature 98, pulse 94, respirations 20, blood pressure 188/77, O2 sat 96% on ____ L nasal cannula. HENT: Conjunctivae and lids normal. Oropharynx clear. NECK: Supple. No mass, no thyromegaly. CHEST: Diminished air entry at bases. No use of accessory muscles. CARDIOVASCULAR: S1, S2 normal. No murmur, gallop, rub. ABDOMEN: Soft, nondistended, nontender. Bowel sounds plus. EXTREMITIES: No leg edema. Pedal pulses palpable. SKIN: Without acute rash. NEUROLOGIC: The patient is awake, alert, fairly oriented with no gross focal deficit. IMPRESSION: 1. Vancomycin-resistant enterococcus urinary tract infection. Status post evaluation by Dr. Gutierrez from infectious disease standpoint. 2. Chronic obstructive pulmonary disease. Stable respiratory status. Continue Advair and breathin g treatment. 3. Hypertension. Will increase Norvasc to 5 mg b.i.d. 4. Diabetes mellitus. The patient's blood sugar slightly uncontrolled. Will increase premeal insu vincent to 10 units. 5. Dyslipidemia. The patient is tolerating Lipitor well. Dictated By: JASON FRANCE/POORNIMA Conf#: [id number] DID#: [id number]
[2016-04-16] MEDS: INSULIN ASPART [NOVOLOG] 3 ML PEN SC SCH ×3 (07:42→17:47)
[2016-04-16] MEDS: [UNRECOGNIZED DRUG - OTHER] SC SCH ×4 (07:43→20:55)
[2016-04-16 07:52] VITALS: BP 130/59; RESP 18
[2016-04-16] MEDS: ATENOLOL 50 MG TAB PO SCH (08:09)
[2016-04-16] MEDS: ESCITALOPRAM 10 MG TAB PO SCH (08:09)
[2016-04-16] MEDS: AMLODIPINE 5 MG TAB PO SCH ×2 (08:10→20:49)
[2016-04-16] MEDS: SALMETEROL/FLUTICASONE 250/50 INHA INH SCH ×2 (08:12→20:49)
[2016-04-16] MEDS: FERROUS SULFATE (EC) 325 MG TAB PO SCH (08:12)
[2016-04-16] MEDS: FLUTICASONE 0.05% 16 GM NAS SPRAY NASAL SCH (08:12)
[2016-04-16] MEDS: ALBUTEROL 0.5% (NEB) 2.5 MG/0.5 ML AMP INH SCH ×4 (08:30→22:27)
[2016-04-16] MEDS: IPRATROPIUM (NEB) 0.5 MG/2.5 ML AMP INH SCH ×4 (08:30→22:27)
--- NOTE | 2016-04-16 11:43 | CONS ---
Date/Time of Note Date/Time of Note DATE: 04/16/16 TIME: 11:41 Consult Date/Type/Reason Admit Date/Time Apr 07, 2016 at 18:53 Subjective Feeling better today Objective pulm- cta sba ambulation Vital Signs Date Time Temp Pulse Resp B/P Pulse Ox O2 Delivery O2 Flow Rate FiO2 04/16/16 08:32 96 20 96 Nasal Cannula 3.0 04/16/16 07:52 98.1 130/59 04/13/16 14:42 32 Intake and Output 04/15/16 04/15/16 04/16/16 14:59 22:59 06:59 Intake Total 520 ml 900 ml Balance 520 ml 900 ml Results/Medications Results 24 hrs Laboratory Tests Test 04/15/16 11:59 04/15/16 17:03 04/15/16 21:08 04/15/16 21:33 Bedside Glucose 283 H 139 237 H Urine Bacteria FEW Urine Bilirubin NEGATIVE Urine Clarity HAZY Urine Color LT. YELLOW Urine Glucose NEGATIVE Urine Hemoglobin TRACE Urine Ketones NEGATIVE Urine Leukocyte Esterase 1+ H Urine Microscopic RBC 0-2 Urine Microscopic WBC 10-25 Urine Nitrite NEGATIVE Urine Specific [place] >=1.030 H Urine Squamous Epithelial Cells MODERATE Urine Total Protein 2+ H Urine Urobilinogen 0.2 E.U./dL Urine Yeast MODERATE Urine pH 5.5 Test 04/16/16 02:17 04/16/16 07:32 Bedside Glucose 167 172 Medications Current Medications Acetaminophen (Tylenol Tab) 650 mg Q6H PRN PO MILD PAIN 1-3 OR TEMP.>100.4F; Start 04/07/16 at 20:00 Acetaminophen (Tylenol Supp) 650 mg Q6H PRN [place] MILD PAIN 1-3 OR TEMP.>100.4F; Start 04/07/16 at 20:00 Atenolol (Tenormin) 50 mg DAILY PO Last administered on 04/16/16 08:09; Admin Dose 50 MG; Start 04/08/16 at 09:00 Atorvastatin Calcium (Lipitor) 10 mg DAILY@21 PO Last administered on 21:13; Admin Dose 10 MG; Start 04/07/16 at 21:00 Bisacodyl (Dulcolax Supp) 10 mg DAILY PRN [place] CONSTIPATION; Start 04/07/16 at 20 :00 Clonidine (Catapres) 0.1 mg Q6H PRN PO SBP ABOVE 160; DBP ABOVE 100 Last administered on 04/12/16 20:55; Admin Dose 0.1 MG; Start 04/07/16 at 20:00 Diphenhydramine HCl (Benadryl) 25 mg Q6H PRN PO ITCHING Last administered on 20:45; Admin Dose 25 MG; Start 04/07/16 at 20:00 Escitalopram Oxalate (Lexapro) 10 mg DAILY PO Last administered on 04/16/16 08 :09; Admin Dose 10 MG; Start 04/08/16 at 09:00 Ferrous Sulfate (Ferrous Sulfate (Ec)) 325 mg QAM PO Last administered on 08:12; Admin Dose 325 MG; Start 04/08/16 at 09:00 Fluticasone Propionate (Flonase 0.05% Nasal) 2 spray DAILY NASAL Last administered on 04/15/16 08:12; Admin Dose 2 SPRAY; Start 04/08/16 at 09:00 Hydroxyzine HCl (Atarax) 25 mg Q6H PRN PO ITCHING; Start 04/07/16 at 20:00 Insulin Glargine (Lantus) 25 unit HS SC Last administered on 04/15/16 21:22; Admin Dose 25 UNIT; Start 04/07/16 at 21:00 Loperamide HCl (Imodium Cap) 2 mg Q4H PRN PO DIARRHEA; Start 04/07/16 at 20:00 Nitroglycerin (Nitroglycerin (Sl Tab) 0.4 Mg) 1 tab Q5M PRN SL CHEST PAIN; Start 04/07/16 at 20:00 Ondansetron HCl (Zofran Inj) 4 mg Q4H PRN IV NAUSEA AND/OR VOMITING; Start at 20:00 Salmeterol Xinafoate/ Fluticasone (Advair 250/50 Diskus) 1 inh BID INH Last administered on 04/16/16 08:12; Admin Dose 1 INH; Start 04/07/16 at 21:00 Tramadol HCl (Ultram) 50 mg Q6H PRN PO SEVERE PAIN Last administered on 15:14; Admin Dose 50 MG; Start 04/07/16 at 20:00 Zolpidem Tartrate (Ambien) 5 mg HS PRN PO INSOMNIA; Start 04/07/16 at 20:00 Miscellaneous Information 1 ea NOTE XX ; Start 04/07/16 at 20:00 Glucose (Glutose) 15 gm Q15M PRN PO DECREASED GLUCOSE; Start 04/07/16 at 20:00 Glucose (Glutose) 22.5 gm Q15M PRN PO DECREASED GLUCOSE; Start 04/07/16 at 20: 00 Dextrose (D50w Syringe) 25 ml Q15M PRN IV DECREASED GLUCOSE; Start 04/07/16 at 20:00 Dextrose (D50w Syringe) 50 ml Q15M PRN IV DECREASED GLUCOSE; Start 04/07/16 at 20:00 Glucagon (Glucagen) 1 mg Q15M PRN IM DECREASED GLUCOSE; Start 04/07/16 at 20:00 Glucose (Glutose) 15 gm Q15M PRN BUCCAL DECREASED GLUCOSE; Start 04/07/16 at 20 :00 Acetaminophen (Tylenol Tab) 650 mg Q4H PRN PO PAIN; Start 04/08/16 at 03:00 Magnesium Hydroxide (Milk Of Mag) 30 ml BID PRN PO CONSTIPATION; Start at 03:00 Lactulose (Enulose) 20 gm DAILY PRN PO CONSTIPATION; Start 04/08/16 at 03:00 Bisacodyl (Dulcolax Supp) 10 mg DAILY PRN [place] CONSTIPATION; Start 04/08/16 at 03 :00 Amlodipine Besylate (Norvasc) 5 mg BID PO Last administered on 04/16/16t 08:10 ; Admin Dose 5 MG; Start 04/15/16 at 21:00 Assessment/Plan Additional Assessment/Plan Rehab- Pulmonary debility Continue rehab program. DM diabetic neuropathy CKD SISSY CARBALLO MD Apr 16, 2016 11:43
--- NOTE | 2016-04-16 16:55 | PN ---
Date/Time of Note Date/Time of Note DATE: 04/16/16 TIME: 16:52 Assessment/Plan VTE Prophylaxis VTE Prophylaxis Intervention: SCD's Lines/Catheters Urinary Cath still in place: No Assessment/Plan Chief Complaint/Hosp Course Assessment and plan: 1. Vancomycin-resistant enterococcus urinary tract infection. Status post treatment, status post evaluation by Dr. Gutierrez from infectious disease standpoint. 2. Chronic obstructive pulmonary disease. Stable respiratory status. Continue Advair and breathing treatment. 3. Hypertension. Continue Norvasc. 4. Diabetes mellitus. Continue NovoLog. 5. Dyslipidemia. Continue Lipitor. Further recommendations based on clinical course. Plan of care discussed with Dr. Navarro. Problems: Subjective 24 Hr Interval Summary Free Text/Dictation Patient is comfortable, no fever nausea vomiting, denies dysuria. Exam/Review of Systems Vital Signs Vitals Vital Signs Date Time Temp Pulse Resp B/P Pulse Ox O2 Delivery O2 Flow Rate FiO2 04/16/16 13:47 100 20 97 Nasal Cannula 3.0 04/16/16 07:52 98.1 130/59 04/13/16 14:42 32 Intake and Output 04/15/16 04/15/16 04/16/16 15:00 23:00 07:00 Intake Total 520 ml 900 ml Balance 520 ml 900 ml Exam GENERAL: The patient is conscious, awake, alert. HEENT: Conjunctivae and lids normal. Oropharynx clear. NECK: Supple. No mass, no thyromegaly. CHEST: Diminished air entry at bases. No use of accessory muscles. CARDIOVASCULAR: S1, S2 normal. No murmur, gallop, rub. ABDOMEN: Soft, nondistended, nontender. Bowel sounds plus. EXTREMITIES: No leg edema. Pedal pulses palpable. SKIN: Without acute rash. NEUROLOGIC: The patient is awake, alert, fairly oriented with no gross focal deficit. Results Results 24 hrs Laboratory Tests Test 04/15/16 17:03 04/15/16 21:08 04/15/16 21:33 04/16/16 02:17 Bedside Glucose 139 237 H 167 Urine Bacteria FEW Urine Bilirubin NEGATIVE Urine Clarity HAZY Urine Color LT. YELLOW Urine Glucose NEGATIVE Urine Hemoglobin TRACE Urine Ketones NEGATIVE Urine Leukocyte Esterase 1+ H Urine Microscopic RBC 0-2 Urine Microscopic WBC 10-25 Urine Nitrite NEGATIVE Urine Specific [place] >=1.030 H Urine Squamous Epithelial Cells MODERATE Urine Total Protein 2+ H Urine Urobilinogen 0.2 E.U./dL Urine Yeast MODERATE Urine pH 5.5 Test 04/16/16 07:32 04/16/16 12:12 Bedside Glucose 172 138 Medications Medications Current Medications Acetaminophen (Tylenol Tab) 650 mg Q6H PRN PO MILD PAIN 1-3 OR TEMP.>100.4F; Start 04/07/16 at 20:00 Acetaminophen (Tylenol Supp) 650 mg Q6H PRN [place] MILD PAIN 1-3 OR TEMP.>100.4F; Start 04/07/16 at 20:00 Atenolol (Tenormin) 50 mg DAILY PO Last administered on 04/16/16 08:09; Admin Dose 50 MG; Start 04/08/16 at 09:00 Atorvastatin Calcium (Lipitor) 10 mg DAILY@21 PO Last administered on 21:13; Admin Dose 10 MG; Start 04/07/16 at 21:00 Bisacodyl (Dulcolax Supp) 10 mg DAILY PRN [place] CONSTIPATION; Start 04/07/16 at 20 :00 Clonidine (Catapres) 0.1 mg Q6H PRN PO SBP ABOVE 160; DBP ABOVE 100 Last administered on 04/12/16 20:55; Admin Dose 0.1 MG; Start 04/07/16 at 20:00 Diphenhydramine HCl (Benadryl) 25 mg Q6H PRN PO ITCHING Last administered on 20:45; Admin Dose 25 MG; Start 04/07/16 at 20:00 Escitalopram Oxalate (Lexapro) 10 mg DAILY PO Last administered on 04/16/16 08 :09; Admin Dose 10 MG; Start 04/08/16 at 09:00 Ferrous Sulfate (Ferrous Sulfate (Ec)) 325 mg QAM PO Last administered on 08:12; Admin Dose 325 MG; Start 04/08/16 at 09:00 Fluticasone Propionate (Flonase 0.05% Nasal) 2 spray DAILY NASAL Last administered on 04/15/16 08:12; Admin Dose 2 SPRAY; Start 04/08/16 at 09:00 Hydroxyzine HCl (Atarax) 25 mg Q6H PRN PO ITCHING; Start 04/07/16 at 20:00 Insulin Glargine (Lantus) 25 unit HS SC Last administered on 04/15/16 21:22; Admin Dose 25 UNIT; Start 04/07/16 at 21:00 Loperamide HCl (Imodium Cap) 2 mg Q4H PRN PO DIARRHEA; Start 04/07/16 at 20:00 Nitroglycerin (Nitroglycerin (Sl Tab) 0.4 Mg) 1 tab Q5M PRN SL CHEST PAIN; Start 04/07/16 at 20:00 Ondansetron HCl (Zofran Inj) 4 mg Q4H PRN IV NAUSEA AND/OR VOMITING; Start at 20:00 Salmeterol Xinafoate/ Fluticasone (Advair 250/50 Diskus) 1 inh BID INH Last administered on 04/16/16 08:12; Admin Dose 1 INH; Start 04/07/16 at 21:00 Tramadol HCl (Ultram) 50 mg Q6H PRN PO SEVERE PAIN Last administered on 15:14; Admin Dose 50 MG; Start 04/07/16 at 20:00 Zolpidem Tartrate (Ambien) 5 mg HS PRN PO INSOMNIA; Start 04/07/16 at 20:00 Miscellaneous Information 1 ea NOTE XX ; Start 04/07/16 at 20:00 Glucose (Glutose) 15 gm Q15M PRN PO DECREASED GLUCOSE; Start 04/07/16 at 20:00 Glucose (Glutose) 22.5 gm Q15M PRN PO DECREASED GLUCOSE; Start 04/07/16 at 20: 00 Dextrose (D50w Syringe) 25 ml Q15M PRN IV DECREASED GLUCOSE; Start 04/07/16 at 20:00 Dextrose (D50w Syringe) 50 ml Q15M PRN IV DECREASED GLUCOSE; Start 04/07/16 at 20:00 Glucagon (Glucagen) 1 mg Q15M PRN IM DECREASED GLUCOSE; Start 04/07/16 at 20:00 Glucose (Glutose) 15 gm Q15M PRN BUCCAL DECREASED GLUCOSE; Start 04/07/16 at 20 :00 Acetaminophen (Tylenol Tab) 650 mg Q4H PRN PO PAIN; Start 04/08/16 at 03:00 Magnesium Hydroxide (Milk Of Mag) 30 ml BID PRN PO CONSTIPATION; Start at 03:00 Lactulose (Enulose) 20 gm DAILY PRN PO CONSTIPATION; Start 04/08/16 at 03:00 Bisacodyl (Dulcolax Supp) 10 mg DAILY PRN [place] CONSTIPATION; Start 04/08/16 at 03 :00 Amlodipine Besylate (Norvasc) 5 mg BID PO Last administered on 04/16/16 08:10 ; Admin Dose 5 MG; Start 04/15/16 at 21:00 [facility] Apr 16, 2016 16:55
[2016-04-16 20:01] VITALS: BP 161/65; RESP 18
[2016-04-16] MEDS: ATORVASTATIN 10 MG TAB PO SCH (20:49)
[2016-04-16] MEDS: INSULIN GLARGINE [LANtus] 3 ML PEN SC SCH (20:55)
[2016-04-17 07:34] VITALS: BP 177/73; RESP 18
[2016-04-17 07:38] LABS: POTASSIUM 5.4 mmol/L (3.5-5.1)
[2016-04-17 07:41] LABS: CALCIUM 9.1 mg/dl (8.4-10.2); CREATININE 0.97 mg/dl (0.44-1.00)
[2016-04-17] MEDS: INSULIN ASPART [NOVOLOG] 3 ML PEN SC SCH ×3 (07:50→17:24)
[2016-04-17] MEDS: [UNRECOGNIZED DRUG - OTHER] SC SCH ×4 (07:52→20:40)
[2016-04-17 08:00] VITALS: BP 177/73; RESP 18
[2016-04-17] MEDS: IPRATROPIUM (NEB) 0.5 MG/2.5 ML AMP INH SCH ×4 (08:07→21:00)
[2016-04-17] MEDS: ALBUTEROL 0.5% (NEB) 2.5 MG/0.5 ML AMP INH SCH ×4 (08:07→21:00)
[2016-04-17] MEDS: ESCITALOPRAM 10 MG TAB PO SCH (08:18)
[2016-04-17] MEDS: AMLODIPINE 5 MG TAB PO SCH ×2 (08:18→20:39)
[2016-04-17] MEDS: FERROUS SULFATE (EC) 325 MG TAB PO SCH (08:18)
[2016-04-17] MEDS: ATENOLOL 50 MG TAB PO SCH (08:19)
[2016-04-17] MEDS: SALMETEROL/FLUTICASONE 250/50 INHA INH SCH ×2 (08:20→20:35)
[2016-04-17] MEDS: FLUTICASONE 0.05% 16 GM NAS SPRAY NASAL SCH (08:20)
--- NOTE | 2016-04-17 11:08 | CONS ---
Date/Time of Note Date/Time of Note DATE: 04/17/16 TIME: 11:07 Consult Date/Type/Reason Admit Date/Time Apr 07, 2016 at 18:53 Subjective Doing very well Objective Vital Signs Date Time Temp Pulse Resp B/P Pulse Ox O2 Delivery O2 Flow Rate FiO2 04/17/16 08:07 86 20 97 Nasal Cannula 3.0 04/17/16 07:34 98.7 177/73 04/13/16 14:42 32 Intake and Output 04/16/16 04/16/16 04/17/16 15:00 23:00 07:00 Intake Total 720 ml 720 ml 550 ml Output Total 360 ml 100 ml Balance 360 ml 620 ml 550 ml sba ambulation Results/Medications Result Diagram: 04/17/16 0615 Results 24 hrs Laboratory Tests Test 04/16/16 12:12 04/16/16 17:00 04/16/16 20:46 04/17/16 02:42 Bedside Glucose 138 175 226 H 182 Test 04/17/16 06:15 04/17/16 07:26 Anion Gap 16 Blood Urea Nitrogen 22 H Calcium Level 9.1 Carbon Dioxide Level 24 Chloride Level 106 Creatinine 0.97 Glucose Level 163 Potassium Level 5.4 H Sodium Level 141 Bedside Glucose 183 Medications Current Medications Acetaminophen (Tylenol Tab) 650 mg Q6H PRN PO MILD PAIN 1-3 OR TEMP.>100.4F; Start 04/07/16 at 20:00 Acetaminophen (Tylenol Supp) 650 mg Q6H PRN [place] MILD PAIN 1-3 OR TEMP.>100.4F; Start 04/07/16 at 20:00 Atenolol (Tenormin) 50 mg DAILY PO Last administered on 04/17/16 08:19; Admin Dose 50 MG; Start 04/08/16 at 09:00 Atorvastatin Calcium (Lipitor) 10 mg DAILY@21 PO Last administered on 20:49; Admin Dose 10 MG; Start 04/07/16 at 21:00 Bisacodyl (Dulcolax Supp) 10 mg DAILY PRN [place] CONSTIPATION; Start 04/07/16 at 20 :00 Clonidine (Catapres) 0.1 mg Q6H PRN PO SBP ABOVE 160; DBP ABOVE 100 Last administered on 04/12/16 20:55; Admin Dose 0.1 MG; Start 04/07/16 at 20:00 Diphenhydramine HCl (Benadryl) 25 mg Q6H PRN PO ITCHING Last administered on 20:45; Admin Dose 25 MG; Start 04/07/16 at 20:00 Escitalopram Oxalate (Lexapro) 10 mg DAILY PO Last administered on 04/17/16 08 :18; Admin Dose 10 MG; Start 04/08/16 at 09:00 Ferrous Sulfate (Ferrous Sulfate (Ec)) 325 mg QAM PO Last administered on 08:18; Admin Dose 325 MG; Start 04/08/16 at 09:00 Fluticasone Propionate (Flonase 0.05% Nasal) 2 spray DAILY NASAL Last administered on 04/15/16 08:12; Admin Dose 2 SPRAY; Start 04/08/16 at 09:00 Hydroxyzine HCl (Atarax) 25 mg Q6H PRN PO ITCHING; Start 04/07/16 at 20:00 Insulin Glargine (Lantus) 25 unit HS SC Last administered on 04/16/16 20:55; Admin Dose 25 UNIT; Start 04/07/16 at 21:00 Loperamide HCl (Imodium Cap) 2 mg Q4H PRN PO DIARRHEA; Start 04/07/16 at 20:00 Nitroglycerin (Nitroglycerin (Sl Tab) 0.4 Mg) 1 tab Q5M PRN SL CHEST PAIN; Start 04/07/16 at 20:00 Ondansetron HCl (Zofran Inj) 4 mg Q4H PRN IV NAUSEA AND/OR VOMITING; Start at 20:00 Salmeterol Xinafoate/ Fluticasone (Advair 250/50 Diskus) 1 inh BID INH Last administered on 04/17/16 08:20; Admin Dose 1 INH; Start 04/07/16 at 21:00 Tramadol HCl (Ultram) 50 mg Q6H PRN PO SEVERE PAIN Last administered on 15:14; Admin Dose 50 MG; Start 04/07/16 at 20:00 Zolpidem Tartrate (Ambien) 5 mg HS PRN PO INSOMNIA; Start 04/07/16 at 20:00 Miscellaneous Information 1 ea NOTE XX ; Start 04/07/16 at 20:00 Glucose (Glutose) 15 gm Q15M PRN PO DECREASED GLUCOSE; Start 04/07/16 at 20:00 Glucose (Glutose) 22.5 gm Q15M PRN PO DECREASED GLUCOSE; Start 04/07/16 at 20: 00 Dextrose (D50w Syringe) 25 ml Q15M PRN IV DECREASED GLUCOSE; Start 04/07/16 at 20:00 Dextrose (D50w Syringe) 50 ml Q15M PRN IV DECREASED GLUCOSE; Start 04/07/16 at 20:00 Glucagon (Glucagen) 1 mg Q15M PRN IM DECREASED GLUCOSE; Start 04/07/16 at 20:00 Glucose (Glutose) 15 gm Q15M PRN BUCCAL DECREASED GLUCOSE; Start 04/07/16 at 20 :00 Acetaminophen (Tylenol Tab) 650 mg Q4H PRN PO PAIN; Start 04/08/16 at 03:00 Magnesium Hydroxide (Milk Of Mag) 30 ml BID PRN PO CONSTIPATION; Start at 03:00 Lactulose (Enulose) 20 gm DAILY PRN PO CONSTIPATION; Start 04/08/16 at 03:00 Bisacodyl (Dulcolax Supp) 10 mg DAILY PRN [place] CONSTIPATION; Start 04/08/16 at 03 :00 Amlodipine Besylate (Norvasc) 5 mg BID PO Last administered on 04/17/16 08:18 ; Admin Dose 5 MG; Start 04/15/16 at 21:00 Assessment/Plan Additional Assessment/Plan Rehab- Pulmonary debility Continue rehab activiites. Anticipate dc tomorrow. DM diabetic neuropathy CKD SISSY CARBALLO MD Apr 17, 2016 11:08
--- NOTE | 2016-04-17 12:09 | PN ---
Date/Time of Note Date/Time of Note DATE: 04/17/16 TIME: 12:07 Assessment/Plan VTE Prophylaxis VTE Prophylaxis Intervention: SCD's Lines/Catheters Urinary Cath still in place: No Assessment/Plan Chief Complaint/Hosp Course Assessment and plan: 1. Vancomycin-resistant enterococcus urinary tract infection. Status post treatment, status post evaluation by Dr. Gutierrez from infectious disease standpoint. 2. Chronic obstructive pulmonary disease. Stable respiratory status. Continue Advair and breathing treatment. 3. Hypertension. Continue Norvasc. 4. Diabetes mellitus. Continue NovoLog. 5. Dyslipidemia. Continue Lipitor. 6. Hyperkalemia, Kayexalate. Further recommendations based on clinical course. Plan of care discussed with Dr. Navarro. Problems: Subjective 24 Hr Interval Summary Free Text/Dictation Patient denies dysuria, continues on supplemental oxygen, states that she has oxygen at home. Exam/Review of Systems Vital Signs Vitals Vital Signs Date Time Temp Pulse Resp B/P Pulse Ox O2 Delivery O2 Flow Rate FiO2 04/17/16 08:07 86 20 97 Nasal Cannula 3.0 04/17/16 07:34 98.7 177/73 04/13/16 14:42 32 Intake and Output 04/16/16 04/16/16 04/17/16 15:00 23:00 07:00 Intake Total 720 ml 720 ml 550 ml Output Total 360 ml 100 ml Balance 360 ml 620 ml 550 ml Exam GENERAL: The patient is conscious, awake, alert. HEENT: Conjunctivae and lids normal. Oropharynx clear. NECK: Supple. No mass, no thyromegaly. CHEST: Diminished air entry at bases. No use of accessory muscles. CARDIOVASCULAR: S1, S2 normal. No murmur, gallop, rub. ABDOMEN: Soft, nondistended, nontender. Bowel sounds plus. EXTREMITIES: No leg edema. Pedal pulses palpable. SKIN: Without acute rash. NEUROLOGIC: The patient is awake, alert, fairly oriented with no gross focal deficit. Results Result Diagram: 04/17/16 0615 Results 24 hrs Laboratory Tests Test 04/16/16 12:12 04/16/16 17:00 04/16/16 20:46 04/17/16 02:42 Bedside Glucose 138 175 226 H 182 Test 04/17/16 06:15 04/17/16 07:26 Anion Gap 16 Blood Urea Nitrogen 22 H Calcium Level 9.1 Carbon Dioxide Level 24 Chloride Level 106 Creatinine 0.97 Glucose Level 163 Potassium Level 5.4 H Sodium Level 141 Bedside Glucose 183 Medications Medications Current Medications Acetaminophen (Tylenol Tab) 650 mg Q6H PRN PO MILD PAIN 1-3 OR TEMP.>100.4F; Start 04/07/16 at 20:00 Acetaminophen (Tylenol Supp) 650 mg Q6H PRN [place] MILD PAIN 1-3 OR TEMP.>100.4F; Start 04/07/16 at 20:00 Atenolol (Tenormin) 50 mg DAILY PO Last administered on 04/17/16 08:19; Admin Dose 50 MG; Start 04/08/16 at 09:00 Atorvastatin Calcium (Lipitor) 10 mg DAILY@21 PO Last administered on 20:49; Admin Dose 10 MG; Start 04/07/16 at 21:00 Bisacodyl (Dulcolax Supp) 10 mg DAILY PRN [place] CONSTIPATION; Start 04/07/16 at 20 :00 Clonidine (Catapres) 0.1 mg Q6H PRN PO SBP ABOVE 160; DBP ABOVE 100 Last administered on 04/12/16 20:55; Admin Dose 0.1 MG; Start 04/07/16 at 20:00 Diphenhydramine HCl (Benadryl) 25 mg Q6H PRN PO ITCHING Last administered on 20:45; Admin Dose 25 MG; Start 04/07/16 at 20:00 Escitalopram Oxalate (Lexapro) 10 mg DAILY PO Last administered on 04/17/16 08 :18; Admin Dose 10 MG; Start 04/08/16 at 09:00 Ferrous Sulfate (Ferrous Sulfate (Ec)) 325 mg QAM PO Last administered on 08:18; Admin Dose 325 MG; Start 04/08/16 at 09:00 Fluticasone Propionate (Flonase 0.05% Nasal) 2 spray DAILY NASAL Last administered on 04/15/16 08:12; Admin Dose 2 SPRAY; Start 04/08/16 at 09:00 Hydroxyzine HCl (Atarax) 25 mg Q6H PRN PO ITCHING; Start 04/07/16 at 20:00 Insulin Glargine (Lantus) 25 unit HS SC Last administered on 04/16/16 20:55; Admin Dose 25 UNIT; Start 04/07/16 at 21:00 Loperamide HCl (Imodium Cap) 2 mg Q4H PRN PO DIARRHEA; Start 04/07/16 at 20:00 Nitroglycerin (Nitroglycerin (Sl Tab) 0.4 Mg) 1 tab Q5M PRN SL CHEST PAIN; Start 04/07/16 at 20:00 Ondansetron HCl (Zofran Inj) 4 mg Q4H PRN IV NAUSEA AND/OR VOMITING; Start at 20:00 Salmeterol Xinafoate/ Fluticasone (Advair 250/50 Diskus) 1 inh BID INH Last administered on 04/17/16 08:20; Admin Dose 1 INH; Start 04/07/16 at 21:00 Tramadol HCl (Ultram) 50 mg Q6H PRN PO SEVERE PAIN Last administered on 15:14; Admin Dose 50 MG; Start 04/07/16 at 20:00 Zolpidem Tartrate (Ambien) 5 mg HS PRN PO INSOMNIA; Start 04/07/16 at 20:00 Miscellaneous Information 1 ea NOTE XX ; Start 04/07/16 at 20:00 Glucose (Glutose) 15 gm Q15M PRN PO DECREASED GLUCOSE; Start 04/07/16 at 20:00 Glucose (Glutose) 22.5 gm Q15M PRN PO DECREASED GLUCOSE; Start 04/07/16 at 20: 00 Dextrose (D50w Syringe) 25 ml Q15M PRN IV DECREASED GLUCOSE; Start 04/07/16 at 20:00 Dextrose (D50w Syringe) 50 ml Q15M PRN IV DECREASED GLUCOSE; Start 04/07/16 at 20:00 Glucagon (Glucagen) 1 mg Q15M PRN IM DECREASED GLUCOSE; Start 04/07/16 at 20:00 Glucose (Glutose) 15 gm Q15M PRN BUCCAL DECREASED GLUCOSE; Start 04/07/16 at 20 :00 Acetaminophen (Tylenol Tab) 650 mg Q4H PRN PO PAIN; Start 04/08/16 at 03:00 Magnesium Hydroxide (Milk Of Mag) 30 ml BID PRN PO CONSTIPATION; Start at 03:00 Lactulose (Enulose) 20 gm DAILY PRN PO CONSTIPATION; Start 04/08/16 at 03:00 Bisacodyl (Dulcolax Supp) 10 mg DAILY PRN [place] CONSTIPATION; Start 04/08/16 at 03 :00 Amlodipine Besylate (Norvasc) 5 mg BID PO Last administered on 04/17/16 08:18 ; Admin Dose 5 MG; Start 04/15/16 at 21:00 [facility] Apr 17, 2016 12:09
[2016-04-17] MEDS ORDERED: NA POLYST SULFON 15 GM/60 ML BTL PO ONE (13:30)
[2016-04-17 20:00] VITALS: BP 142/63; PULSE 94; RESP 18
[2016-04-17] MEDS: INSULIN GLARGINE [LANtus] 3 ML PEN SC SCH (20:39)
[2016-04-17] MEDS: ATORVASTATIN 10 MG TAB PO SCH (20:39)
[2016-04-18 07:26] LABS: POTASSIUM 5.1 mmol/L (3.5-5.1)
[2016-04-18 07:29] LABS: CALCIUM 8.9 mg/dl (8.4-10.2)
[2016-04-18 07:30] VITALS: BP 168/67; RESP 20
[2016-04-18] MEDS: [UNRECOGNIZED DRUG - OTHER] SC SCH (08:27)
[2016-04-18] MEDS: SALMETEROL/FLUTICASONE 250/50 INHA INH SCH (08:28)
[2016-04-18] MEDS: INSULIN ASPART [NOVOLOG] 3 ML PEN SC SCH (08:28)
[2016-04-18] MEDS: FLUTICASONE 0.05% 16 GM NAS SPRAY NASAL SCH (08:29)
[2016-04-18] MEDS: ESCITALOPRAM 10 MG TAB PO SCH (08:29)
[2016-04-18] MEDS: FERROUS SULFATE (EC) 325 MG TAB PO SCH (08:29)
[2016-04-18] MEDS: ATENOLOL 50 MG TAB PO SCH (08:32)
[2016-04-18] MEDS: IPRATROPIUM (NEB) 0.5 MG/2.5 ML AMP INH SCH (09:32)
[2016-04-18] MEDS: ALBUTEROL 0.5% (NEB) 2.5 MG/0.5 ML AMP INH SCH (09:32)
--- NOTE | 2016-04-18 17:51 | DS ---
DATE OF ADMISSION: 04/07/2016 DATE OF DISCHARGE: 04/18/2016 DISCHARGE DIAGNOSES: 1. Chronic obstructive pulmonary disease. 2. Hypertension. 3. Diabetes mellitus. 4. Hyperlipidemia. 5. Recent vancomycin-resistant Enterococcus urinary tract infection. DISCHARGE MEDICATIONS: 1. NovoLog 10 units before each meal. 2. Norvasc 5 mg b.i.d. 3. Atenolol 50 mg once a day. 4. Lexapro 10 mg once a day. 5. Iron sulfate 325 once a day. 6. Flonase nasal spray once a day. 7. Albuterol breathing treatment q.4h. 8. Lipitor 10 mg once a day. 9. Lantus 25 once a day. 10. Atrovent q.4h. as needed. 11. Advair 250/50 one puff b.i.d. FOLLOWUP: The patient is to follow up with PMD in 1 to 2 weeks. REASON FOR ADMISSION: The patient is a 80-year-old female with history of hypertension, diabetes, a nd dyslipidemia. The patient was recently admitted at [facility] due to COPD exacerbation . The patient was treated with antibiotic. The patient apparently was intolerant of systemic stero ids. The patient was transferred to [facility] and after improvement in her pulmon balaji status, the patient continued to have deconditioning and was referred to acute rehabilitation. The patient was subsequently admitted there. The patient was seen by Dr. Brian Barillas from re hab standpoint. The patient was also seen by Dr. Gutierrez due to VRE detected on urine culture. The patient's respiratory status remained stable. The patient did not have any further exacerbation of COPD. No reported recent chest pain, fever or chills. No reported bleeding from any site. The pat ient remains awake, alert. No reported headache, dizziness, syncope. No history of any focal weakn ess. PHYSICAL EXAMINATION: GENERAL: The patient is conscious, awake, alert. VITAL SIGNS: The patient had been afebrile for more than 24 hours. Pulse 85, respirations 19, bloo d pressure 168/87, O2 saturation 96%. HEENT: Conjunctivae and lids normal. Oropharynx clear. NECK: Supple. No mass, no thyromegaly. LUNGS: Fairly clear. No use of accessory muscles. CARDIOVASCULAR: Regular rate and rhythm. S1, S2 normal. No murmur. ABDOMEN: Soft, nondistended, nontender. No palpable mass. EXTREMITIES: No leg edema. Pedal pulses palpable. SKIN: Without acute rash or ulcer. NEUROLOGIC: The patient is awake, alert, fairly oriented with no gross focal deficit. LABORATORY DATA: WBC 10, hemoglobin 9.8, platelets 264. Chemistry done this morning reveals sodium 142, potassium 5.1, BUN 21, creatinine 1, glucose 180, calcium 8.9. CONDITION ON DISCHARGE: Stable. CODE STATUS: The patient wanted to remain DNR. The patient will have her previous home health. Plan of care discussed with the patient's nurse, Elder murry. Dictated By: JASON FRANCE/POORNIMA Conf#: [id number] DID#: [id number]
--- NOTE | 2016-04-20 07:28 | DS ---
DATE OF ADMISSION: 04/07/2016 DATE OF DISCHARGE: 04/18/2016 ADMISSION DIAGNOSES: 1. Pulmonary debility secondary to chronic obstructive pulmonary disease exacerbation. 2. Diabetes mellitus type 2. 3. Hypertension. 4. Diabetic neuropathy. 5. Acute on chronic kidney disease. 6. Anxiety. 7. Impairments in self-care and mobility. DISCHARGE DIAGNOSES: 1. Pulmonary debility secondary to chronic obstructive pulmonary disease exacerbation. 2. Diabetes mellitus type 2. 3. Hypertension. 4. Diabetic neuropathy. 5. Acute on chronic kidney disease. 6. Anxiety. 7. Improvements in self-care and mobility. HOSPITAL COURSE: The patient was admitted for comprehensive interdisciplinary acute rehab and made excellent functional gains during the course of the stay. The patient progressed from an initial mo derate assist for self-care and mobility tasks and progressed to the point of standby assist for all areas of self-care and mobility, including ambulation over 150 feet with the use of a front-wheel w alker. The patient is being discharged home with the recommendation of home health physical therapy and occupational therapy followup. DISCHARGE MEDICATIONS: Per the medication reconciliation sheet. CONDITION ON DISCHARGE: Stable. Dictated By: SISSY HOOD/POORNIMA Conf#: [id number] DID#: [id number]
== END 2016-04-18 12:00 | disposition home health service (06) | DRG 191 ==
LOC: VRC 18:53
PROVIDERS: ADMIT Internal Medicine; ATTEND Internal Medicine
DX: J44.9 Chronic obstructive pulmonary disease, unspecified (principal); N39.0 Urinary tract infection, site not specified; E11.22 Type 2 diabetes mellitus with diabetic chronic kidney disease; E11.40 Type 2 diabetes mellitus with diabetic neuropathy, unspecified; Z99.81 Dependence on supplemental oxygen; F41.9 Anxiety disorder, unspecified; Z87.891 Personal history of nicotine dependence; Z66 Do not resuscitate; B95.2 Enterococcus as the cause of diseases classified elsewhere; Z16.21 Resistance to vancomycin; I12.9 Hypertensive chronic kidney disease with stage 1 through stage 4 chronic kidney disease, or unspecified chronic kidney disease; N18.9 Chronic kidney disease, unspecified; R19.7 Diarrhea, unspecified; E78.5 Hyperlipidemia, unspecified; E87.5 Hyperkalemia
CPT/HCPCS: 80048; 80053; 81001; 81003; 82962; 85025; 87075; 87081; 87086; 90686; 94640; 94664; 95852; 97110; 97112; 97116; 97150; 97163; 97167; 97530; 97535; J1815; J2270